=== PATIENT | male | born 1930 | race Caucasian/White ===

== ENCOUNTER 2016-07-18 11:39 | Inpatient (IN) | payer MEDICARE, OTHER ==
[2016-07-18] VITALS (9 sets, daily range): BP systolic 83–142; BP diastolic 40–81; PULSE 95–128; RESP 16–20; TEMP 97.8–99.7; O2SAT 98–100
[~2016-07-18] VITALS: Ht 170.2 cm; Wt 120.1 kg
[~2016-07-18 11:39] MED LIST: CARV3.12 PO; CETACRE3 TOPICAL; CIPR-9 PO; FURO20TA PO; LISI-360 PO; METO2.5T7 PO; OMEP20TA PO; POTA10IN2 PO; ST J81CH PO; TAMS0.4C67 PO; [UNRECOGNIZED DRUG - REMARK]; [UNRECOGNIZED DRUG - SUPPLY]
--- NOTE | 2016-07-18 12:11 | PD ---
HPI Chief Complaint: GI Complaint Time Seen by Provider: 12:11 Travel History International Travel<30 days: No Contact w/Intl Traveler<30days: No Traveled to known affect area: No History of Present Illness HPI 85-year-old male presents to the emergency department via EMS from home for evaluation for diarrhea for 4 days. Patient has a past medical history of hypertension, enlarged prostate, extremity edema, CHF, GERD. Patient states he was placed on ciprofloxacin 4 days ago for urinary tract infection. He states he soon started with diarrhea. He states the diarrhea is worse at night. He does not even know he'll be having it. Patient reports skin breakdown due to the diarrhea. He denies any fevers or chills. No chest pain or shortness of breath. Patient denies any abdominal pain. No vomiting. He denies any blood in his stool. EMS gave him 1 L normal saline IV bolus due to hypotension on scene. Patient does complain of generalized weakness. PFSH Past Medical History Hypertension: Yes Social History Alcohol Use: No (DAILY) Tobacco Use: No Substance Use: No Allergies-Medications (Allergen,Severity, Reaction): Coded Allergies: No Known Allergies (Unverified , 07/18/16) Reported Meds & Prescriptions Reported Meds & Active Scripts Active Reported Cipro (Ciprofloxacin HCl) 500 Mg Tab 500 Mg PO BID Tamsulosin (Tamsulosin HCl) 0.4 Mg Cap 0.4 Mg PO DAILY Lasix (Furosemide) 20 Mg Tab 20 Mg PO BID Lisinopril 10 Mg Tab 10 Mg PO DAILY Omeprazole 20 Mg Tab 20 Mg PO DAILY Aspirin 325 Mg Tab 325 Mg PO DAILY Review of Systems Except as stated in HPI: all other systems reviewed are Neg Physical Exam Narrative GENERAL: Well-developed well-nourished elderly male patient, afebrile. SKIN: Warm and dry. HEAD: Normocephalic. Atraumatic. EYES: No scleral icterus. No injection or drainage. NECK: Supple, trachea midline. No JVD or lymphadenopathy. CARDIOVASCULAR: Regular rate and rhythm without murmurs, gallops, or rubs. RESPIRATORY: Breath sounds equal bilaterally. No accessory muscle use. Lungs sounds are clear to auscultation. GASTROINTESTINAL: Abdomen soft, obese, non-tender, nondistended. MUSCULOSKELETAL: No cyanosis, or edema. Bilateral 2-3+ lower extremity edema noted. BACK: Nontender without obvious deformity. No CVA tenderness. RECTAL EXAM: No masses or tenderness, stool is watery, brown. Patient has skin breakdown and bleeding noted to the bilateral buttocks. Hemoccult is positive, but I'm unsure if this is due to the bleeding skin or actual blood in the stool. Data Data Last Documented VS Vital Signs Date Time Temp Pulse Resp B/P Pulse Ox O2 Delivery O2 Flow Rate FiO2 07/18/16 13:30 119 18 83/50 98 Room Air 07/18/16 11:48 97.8 Orders Complete Blood Count With Diff (07/18/16 12:09) Comprehensive Metabolic Panel (07/18/16 12:09) Urinalysis - C+S If Indicated (07/18/16 12:09) Lipase (07/18/16 12:09) Iv Access Insert/Monitor (07/18/16 12:09) Ecg Monitoring (07/18/16 12:09) Oximetry (07/18/16 12:09) Sodium Chloride 0.9% Flush (Ns Flush) (07/18/16 12:15) Blood Culture (07/18/16 12:09) C Diff Toxin Pcr (07/18/16 12:09) Enteric Path (Stool) (07/18/16 12:09) Lactic Acid Sepsis Protocol (07/18/16 12:09) Type And Screen (07/18/16 12:09) Prothrombin Time / Inr (Pt) (07/18/16 12:11) Act Partial Throm Time (Ptt) (07/18/16 12:11) Petrolat-Zinc Barrier Oint (Sensi-Care P (07/18/16 12:30) Urinary Catheter Management MARVIN.Q8H (07/18/16 12:21) Metronidazole 500 Mg Inj (Flagyl 500 Mg (07/18/16 12:30) Urine Culture (07/18/16 12:25) Sodium Chlor 0.9% 1000 Ml Inj (Ns 1000 M (07/18/16 13:30) Ceftriaxone Inj (Rocephin Inj) (07/18/16 13:30) Ceftazidime Inj (Fortaz Inj) (07/18/16 13:30) Admit Order (Ed Use Only) (07/18/16 13:36) Labs Laboratory Tests Test 07/18/16 07/18/16 12:15 12:25 White Blood Count 7.0 TH/MM3 Red Blood Count 3.87 MIL/MM3 Hemoglobin 11.9 GM/DL Hematocrit 35.4 % Mean Corpuscular Volume 91.4 FL Mean Corpuscular Hemoglobin 30.7 PG Mean Corpuscular Hemoglobin 33.6 % Concent Red Cell Distribution Width 22.6 % Platelet Count 232 TH/MM3 Mean Platelet Volume 9.2 FL Neutrophils (%) (Auto) 82.5 % Lymphocytes (%) (Auto) 6.2 % Monocytes (%) (Auto) 10.7 % Eosinophils (%) (Auto) 0.3 % Basophils (%) (Auto) 0.3 % Neutrophils # (Auto) 5.8 TH/MM3 Lymphocytes # (Auto) 0.4 TH/MM3 Monocytes # (Auto) 0.8 TH/MM3 Eosinophils # (Auto) 0.0 TH/MM3 Basophils # (Auto) 0.0 TH/MM3 CBC Comment DIFF FINAL Differential Comment Prothrombin Time 11.8 SEC Prothromb Time International 1.1 RATIO Ratio Activated Partial 27.7 SEC Thromboplast Time Sodium Level 122 MEQ/L Potassium Level 4.5 MEQ/L Chloride Level 83 MEQ/L Carbon Dioxide Level 21.3 MEQ/L Anion Gap 18 MEQ/L Blood Urea Nitrogen 25 MG/DL Creatinine 2.74 MG/DL Estimat Glomerular Filtration 22 ML/MIN Rate Random Glucose 89 MG/DL Serum Osmolality 289 MOSM/KG Lactic Acid Level 3.3 mmol/L Calcium Level 8.8 MG/DL Total Bilirubin 0.9 MG/DL Aspartate Amino Transf 115 U/L (AST/SGOT) Alanine Aminotransferase 110 U/L (ALT/SGPT) Alkaline Phosphatase 124 U/L Total Protein 6.8 GM/DL Albumin 3.2 GM/DL Lipase 422 U/L Thyroid Stimulating Hormone 2.260 uIU/ML 3rd Gen Ethyl Alcohol Level 60 MG/DL Blood Type O POSITIVE Antibody Screen NEGATIVE Blood Bank Comment Urine Color YELLOW Urine Turbidity HAZY Urine pH 5.0 Urine Specific [place] 1.012 Urine Protein 30 mg/dL Urine Glucose (UA) TRACE mg/dL Urine Ketones 10 mg/dL Urine Occult Blood TRACE Urine Nitrite NEG Urine Bilirubin NEG Urine Urobilinogen LESS THAN 2.0 MG/DL Urine Leukocyte Esterase LARGE Urine RBC 1 /hpf Urine WBC 23 /hpf Urine WBC Clumps RARE Urine Squamous Epithelial <1 /hpf Cells Urine Bacteria OCC /hpf Urine Hyaline Casts 5 /lpf Urine Mucus FEW /lpf Microscopic Urinalysis Comment CULTURE INDICATED MDM Medical Decision Making Medical Screen Exam Complete: Yes Emergency Medical Condition: Yes Medical Record Reviewed: Yes Differential Diagnosis C. difficile diarrhea versus dehydration versus sepsis versus electrolyte abnormality versus acute kidney injury Narrative Course 85-year-old elderly male presents to the emergency department for 4 days worth of diarrhea. Patient of skin breakdown to bilateral buttocks due to sitting and diarrhea. Hemoccult is positive, but I am unsure if this is due to the skin bleeding. Patient was hypotensive on scene and received 1 L normal saline IV bolus by paramedics. CBC, CMP, lipase, UA, PTT, PT/INR, C. difficile toxin, enteric pathogen in the stool, lactic acid, type and screen, blood cultures 2 are ordered and pending. EKG shows atrial fibrillation, heart rate 114. CBC shows normal WBC of 7.0, hemoglobin 11.9, hematocrit 35.4, neutrophilia 82.5 %. CMP shows hyponatremia 122, anion gap of 18, the UA 25/72.74. Liver enzymes are elevated with AST 1:15, LD 110, alkaline phosphatase 124. Lipase is 422. UA shows trace blood, large leukocyte esterase, 23 WBC, rare RBC cause , occasional bacteria. Coags show PT 11.8, INR 1.1, PTT 27.7. Lactic acid is elevated at 3.3. Intensivists are paged for admission. Sepsis Criteria SIRS Criteria (2 or more): Heart rate over 90 Severe Sepsis (+one): Lactate >2 Diagnosis Primary Impression: Hyponatremia Additional Impressions: Atrial fibrillation, new onset Urinary tract infection Qualified Code: N30.01 - Acute cystitis with hematuria Diarrhea Qualified Code: A09 - Diarrhea of presumed infectious origin Admitting Information Admitting Physician Requests: Admit Mellisa Rodriguez Jul 18, 2016 12:11
[2016-07-18] MEDS ORDERED: SODIUM CHLORIDE 0.9% FLUSH 5 ML FLUSH IVF PRN (12:15)
[2016-07-18] MEDS ORDERED: PETROLATUM 49%/ZINC OXIDE 15% 4 OUNCE TUBE TOPICAL ONE (12:30)
[2016-07-18] MEDS ORDERED: metroNIDAZOLE 500 MG INJ 100 ML IV ONE (12:30)
[2016-07-18 12:35] LABS: AUTOMATED NEUTROPHIL # 5.8 TH/MM3 (1.8-7.7); BASOPHIL % 0.3 % (0.0-2.0); EOSINOPHIL % 0.3 % (0.0-4.0); HEMATOCRIT 35.4 % (39.0-51.0); HEMO FLAGS DIFF FINAL; LYMPH % 6.2 % (9.0-44.0); LYMPHOCYTE # 0.4 TH/MM3 (1.0-4.8); MEAN CELL VOLUME 91.4 FL (80.0-100.0); MEAN CORPUSCULAR HEMOGLOBIN 30.7 PG (27.0-34.0); MEAN CORPUSCULAR HGB CONC 33.6 % (32.0-36.0); MONO % 10.7 % (0.0-8.0); NEUT % 82.5 % (16.0-70.0); PLATELET COUNT 232 TH/MM3 (150-450); RED BLOOD COUNT 3.87 MIL/MM3 (4.50-5.90); RED CELL DISTRIBUTION WIDTH 22.6 % (11.6-17.2)
[2016-07-18 12:48] LABS: APTT (PATIENT) 27.7 SEC (24.3-30.1); INTERNATIONAL NORMALIZED RATIO 1.1 RATIO; PROTHROMBIN TIME - PATIENT 11.8 SEC (9.8-11.6)
[2016-07-18 13:01] LABS: ALKALINE PHOSPHATASE 124 U/L (45-117); ALT (GPT) 110 U/L (12-78); ANION GAP 18 MEQ/L (5-15); AST (GOT) 115 U/L (15-37); BICARBONATE 21.3 MEQ/L (21.0-32.0); BLOOD UREA NITROGEN 25 MG/DL (7-18); CHLORIDE 83 MEQ/L (98-107); GLOMERULAR FILTRATION RATE 22 ML/MIN (>89); POTASSIUM 4.5 MEQ/L (3.5-5.1); TOTAL BILIRUBIN ADULT 0.9 MG/DL (0.2-1.0)
[2016-07-18 13:04] LABS: SODIUM (NA) 122 MEQ/L (136-145)
[2016-07-18 13:12] LABS: BACTERIA, URINE OCC /hpf; BLOOD, URINE TRACE (NEG); GLUCOSE,URINE TRACE mg/dL (NEG); HYALINE CAST, URINE 5 /lpf (RARE); KETONE, URINE 10 mg/dL (NEG); MUCUS URINE FEW /lpf (OCC); NITRITE,URINE NEG (NEG); SQUAMOUS EPITHELIAL CELL URINE <1 /hpf (0-5); URINE COLOR YELLOW (YELLW/STRAW)
[2016-07-18 13:18] LABS: COMMENT (UR) CULTURE INDICATED; CULTURE IF INDICATED CULTURE INDICATED
[2016-07-18] MEDS ORDERED: cefTRIAXone INJ 1,000 MG in SODIUM CHLORIDE 0.9% INJ 100 ML IV ONE (13:30)
[2016-07-18] MEDS ORDERED: cefTAZidime INJ 2,000 MG in SODIUM CHLORIDE 0.9% INJ 100 ML IV ONE (13:30)
[2016-07-18] MEDS ORDERED: SODIUM CHLOR 0.9% 1000 ML INJ 1,000 ML IV ONE ×2 (13:30→22:15)
[2016-07-18] MEDS ORDERED: CHLORHEXIDINE GLUCONATE 2 % 1 PACK (2 CLOTHS) TOP PRN (14:00)
[2016-07-18] MEDS ORDERED: RESP: ALBUTEROL 2.5 MG/IPRATROPIUM 0.5 MG NEB (PRN) INH (14:00)
[2016-07-18] MEDS ORDERED: MISCELLANEOUS NURSING INFORMATION XX SCH (14:00)
[2016-07-18 14:26] LABS: LACTIC ACID GHOST NOT REPORTABLE
--- NOTE | 2016-07-18 14:48 | MH ---
cc: AGNES HARDING M.D. DATE OF ADMISSION: 07/18/2016 DATE OF : 1930 HISTORY OF PRESENT ILLNESS The patient is an 85-year-old male with a past medical history of hypertension, BPH and GERD, who presented to [facility] ED via EMS from home with a history of non-bloody diarrhea for the past 4 days. He denies any nausea, vomiting or abdominal pain. In addition, the patient denies any cough or any constitutional symptoms. On arrival to the ED he initially had a blood pressure of 142/81, however, he was tachycardic with a heart rate in the 120s, and in the ER became hypotensive with a blood pressure in the 80s. The patient received one liter of normal saline by EMS en route and is about to receive a second liter of normal saline. His laboratory data is significant for hyponatremia with a sodium level of 122, acute renal failure with a creatinine of 2.74 with potassium 4.5, and mild elevation lactic acid at 3.3. Other significant labs showed elevated LFTs with AST 115, ALT 110 and lipase of 422. His urinalysis was positive for leukocyte esterase with 23 wbc's and occasional bacteria. He reports generalized weakness. The patient was on Cipro at home for the UTI. EKG showed new-onset atrial fibrillation with a rate of 114 beats per minute. When seen in the ER the patient is on room air oxygen. He looks comfortable, however. The patient is hypotensive with a blood pressure of 93/51 and tachycardic with heart rate of 110. The patient is an active drinker where he drinks two bottles of wine a week. PAST MEDICAL HISTORY 1. Hypertension. 2. BPH. 3. GERD. 4. Questionable CHF. PAST SURGICAL HISTORY Unremarkable. ALLERGIES No known drug allergies. SOCIAL HISTORY Noncontributory. SOCIAL HISTORY Drinks two bottles of wine a week. Non-smoker. FAMILY HISTORY Noncontributory. MEDICATIONS A blood pressure pill, which he does not remember the name. REVIEW OF SYSTEMS As per HPI. The rest of the review of systems is unremarkable. PHYSICAL EXAMINATION GENERAL: An 85-year-old male, lying in bed in no acute respiratory distress. However, he is hypotensive and appears dehydrated. VITAL SIGNS: Temperature 97.8, pulse 110, blood pressure currently 93/51, saturation 93-98% on room air. HEENT: Atraumatic, normocephalic. Pupils equal, round and reactive to light and accommodation. Extraocular muscles intact. Conjunctiva pink. Non-icteric sclera. Oral mucosa within normal. Dry mucous membranes noted. NECK: Supple. No JVD, adenopathy or thyromegaly. Trachea in the midline. CARDIOVASCULAR: Tachycardic, irregular, normal S1, S2. No murmurs, rubs or gallops noted. PULMONARY: Bilateral equal entry. No crackles or wheezing. ABDOMEN: Soft, obese, nontender, no distension. Positive bowel sounds. EXTREMITIES: No cyanosis or clubbing. Trace edema. NEUROLOGIC: No focal sensory deficit. LABORATORY DATA Sodium 122, potassium 4.5, chloride 83, anion gap 18, BUN 25, creatinine 2.74, glucose 89, lactic acid 3.3, AST 115, ALT 110, alk phos 124, lipase 422. WBC 7, hemoglobin 11.9, hematocrit 35, platelet count 232. INR 1.1, PT 11.8, PTT 27.7. Urinalysis positive for leukocyte esterase, 23 wbc's, occasional bacteria. RADIOGRAPHIC STUDIES None available. IMPRESSION 1. Hypotension. 2. Diarrhea, and rule out C. difficile. 3. Urinary tract infection. 4. Dehydration. 5. Acute renal failure. 6. Hyponatremia. 7. Mild lactic acidemia. 8. Elevated liver enzymes. 9. Mild elevation in lipase. 10.ETOH abuse. 11.History of hypertension. 12.History of BPH. 13.History of GERD. PLAN/RECOMMENDATIONS 1. Monitor neuro status closely and watch for signs of DTs. 2. Will place on thiamine, multivitamins and folic acid and will check an alcohol level. 3. Oxygen p.r.n. to maintain sats above 92%. 4. Bronchodilators on a p.r.n. basis. 5. Continue with fluid resuscitation and monitor heart rate and blood pressure closely. Maintain MAP greater than 65 mmHg. 6. The patient received one liter of normal saline by EMS and is about to receive a second liter of normal saline. Will place on maintenance fluids D5 NS at 100 mL an hour. 7. Hold antihypertensive meds and serial lactic acid monitoring. 8. Monitor renal function, I's and O's and avoid nephrotoxins. 9. I will obtain serum and urine osmolality and will check a baseline TSH level. 10.Will consult the nephrology service and continue with IV hydration as stated above. 11.Place on Protonix 40 mg IV daily for GI prophylaxis and keep n.p.o. for now. 12.Will obtain a CT scan of the abdomen and pelvis without contrast to rule out acute abdominal process. 13.Continue with empiric antibiotics in the form of Flagyl 500 mg IV q.8h. In addition, will place on Rocephin one gram IV daily for UTI. Follow-up on blood and urine cultures which were performed in the ED. 14.Will send stool studies and will check C. difficile toxin PCR to rule out C. difficile colitis as the patient was on Cipro at home for an UTI. 15.Monitor lipase level and LFTs. Check a hepatitis profile. 16.Sliding scale insulin if needed for glycemic control. 17.GI prophylaxis with Protonix 40 mg daily and DVT prophylaxis with SCDs and heparin subcu. 18.Further recommendations will be based on hospital course. Critical care time 60 minutes excluding procedures. MD GUILLAUME Wilson/HAMMAD /1:59 PM /2:19 PM
[2016-07-18] MEDS ORDERED: TAMS0.4C4 PO (15:17)
[2016-07-18] MEDS ORDERED: FURO1TAB62 PO (15:17)
[2016-07-18] MEDS ORDERED: POTA-163 PO (15:17)
[2016-07-18] MEDS ORDERED: METO2.5T PO (15:17)
[2016-07-18] MEDS ORDERED: AMLO5TAB2 PO (15:17)
[2016-07-18] MEDS ORDERED: MULT-135 PO (15:17)
[2016-07-18] MEDS ORDERED: CARV3.125 PO (15:17)
[2016-07-18] MEDS ORDERED: LISI10TA3 PO (15:17)
[2016-07-18] MEDS ORDERED: OMEP20TA PO (15:17)
[2016-07-18] MEDS ORDERED: CIPR-9 PO (15:17)
[2016-07-18] MEDS ORDERED: ASPI325T PO (15:17)
--- NOTE | 2016-07-18 15:41 | RADRPT ---
EXAM DATE/TIME: 07/18/2016 14:48 [facility] COMPARISON: No previous studies available for comparison. INDICATIONS : Elevated lipase and diarrhea. ORAL CONTRAST: No oral contrast ingested. RADIATION DOSE: 23.82 CTDIvol (mGy) MEDICAL HISTORY : Hypertension. SURGICAL HISTORY : None. ENCOUNTER: Initial ACUITY: 1 day PAIN SCALE: 5/10 LOCATION: Bilateral lower quadrant TECHNIQUE: Volumetric scanning of the abdomen and pelvis was performed. Using automated exposure control and ad justment of the mA and/or kV according to patient size, radiation dose was kept as low as reasonably achievable to obtain optimal diagnostic quality images. FINDINGS: There is a 12 mm x 8 mm nodule in the right middle lobe seen on the initial image. Further evaluation with chest CT recommended. There is diffuse fatty infiltration of the liver. Multiple gallstones are present in the gallbladder neck. The small hiatal hernia. No spleen and pancreas unremarkable. The right kidney unremarkable. Ex ophytic 5.3 cm left renal cyst and hyperdense 1.6 cm lesion superior pole, probably hemorrhagic or pr oteinaceous cyst. There is colonic diverticulosis without diverticulitis. No free fluid or free air. Moy catheter pre sent in the bladder. Degenerative change in the spine. CONCLUSION: 1. 12 mm x 8 mm nodule right middle lobe. Further evaluation with chest CT recommended. 2. Diffuse fatty liver. 3. Numerous gallstones lodged in gallbladder neck. Gallbladder not significantly distended. Probable gallbladder sludge present. 4. Multiple left renal cysts. Juan Carlos Ivan MD on July 18, 2016 at 15:32 Board Certified Radiologist. This report was verified electronically.
[2016-07-18] MEDS: MULTIVITAMIN TAB PO SCH (15:46)
[2016-07-18] MEDS: PANTOPRAZOLE SODIUM 40 MG VIAL IV SCH (15:46)
[2016-07-18] MEDS: DEXT 5%-NACL 0.9% 1000 ML INJ 1,000 ML IV SCH (15:46)
[2016-07-18] MEDS: cefTRIAXone INJ 1,000 MG in SODIUM CHLORIDE 0.9% INJ 100 ML IV SCH (15:46)
[2016-07-18] MEDS: THIAMINE HCL 100 MG TAB PO SCH (15:47)
[2016-07-18] MEDS: FOLIC ACID 1 MG TAB PO SCH (15:47)
[2016-07-18] MEDS: HEPARIN SODIUM - SQ 10,000 UNITS/ML VIAL SQ SCH (15:47)
[2016-07-18 18:50] LABS: POTASSIUM 5.6 MEQ/L (3.5-5.1)
[2016-07-18] MEDS ORDERED: LACTATED RINGER'S 1000 ML INJ 1,000 ML IV ONE (21:45)
--- NOTE | 2016-07-18 21:45 | HHI.CCPN ---
Subjective Remarks/Hospital Course Followed up patient's labs. Lactic acid 6.7. Went to bedside to evaluate him. UOP was 750 since admission about 8 hours ago (83 ml/hr). SBP is 85/40 with heart rate 90-120s, A fib. Ordered 1 L LR bolus and about 1/4 is in so far. He is alert and denies abdominal pain. Abdomen is nontender to palpation. Denies nausea or other complaint. Peripherally warm with good cap refill and BP now 94/ 50 with MAP 67. Lungs are clear without crackles. On 2 L NC. Moy with urometer , will monitor hourly urine output. Increase MIVF to 150/hr. Active drinker and family very concerned with possibility of EtOH withdrawal (family states bottle of wine a day). Will initiate valium 2 mg po q8 hours with hold orders for sedation. Followed up in 1 hour. When bolus stops, SBP in 70s. Placed CVL and started levophed. Followed up and lactic acid is normal. Discussed with RN and UOP 75 mL /hr. Objective Vital Signs Date Time Temp Pulse Resp B/P Pulse Ox O2 Delivery O2 Flow Rate FiO2 07/18/16 18:00 98.3 120 20 95/55 99 07/18/16 17:21 Room Air Result Diagram: 07/18/16 1215 07/18/16 1820 Shilpa Roque MD Jul 18, 2016 21:45
[2016-07-18] MEDS ORDERED: metroNIDAZOLE 500 MG INJ 100 ML IV SCH (22:00)
--- NOTE | 2016-07-18 22:52 | RADRPT ---
EXAM DATE/TIME: 07/18/2016 21:19 [facility] COMPARISON: No previous studies available for comparison. INDICATIONS : Increased BUN and creatinine. MEDICAL HISTORY : Congestive heart failure. Hypertension. Gastroesophageal reflux disease. Snoring. Heartburn. Daily al cohol use. SURGICAL HISTORY : Rotator cuff. ENCOUNTER: Initial ACUITY: 1 day PAIN SCORE: 0/10 LOCATION: Bilateral flank MEASUREMENTS: RIGHT KIDNEY: 11.9 x 6.3 x 6.5 cm LEFT KIDNEY: 11.3 x 4.4 x 4.6 cm FINDINGS: RIGHT KIDNEY: Renal cortex is normal in thickness and echotexture. No hydronephrosis, stone, or mass. LEFT KIDNEY: Renal cortex is normal in thickness and echotexture. No hydronephrosis, stone, or mass. A 6.2 cm sim ple cyst is seen exophytic from the upper pole. A 9 mm cyst is seen involving the cortex of the lower pole. BLADDER: Within normal limits given the degree of distension. A Moy balloon is present within the urinary bl adder. CONCLUSION: 1. Simple cysts in the left kidney. Otherwise, unremarkable exam. Gerson Zhang Jr., MD on July 18, 2016 at 22:48 Board Certified Radiologist. This report was verified electronically.
[2016-07-18] MEDS ORDERED: PHENYLEPHRINE 40 MG/D5W 496 ML ADMIX IV SCH ×2 (23:15)
[2016-07-18] MEDS ORDERED: TERBUTALINE INJ 1 MG/ML AMP SQ PRN ×2 (23:15→23:30)
[2016-07-18] MEDS ORDERED: PHENYLEPHRINE INJ 160 MG in DEXTROSE 5% IN WATE 500 ML INJ 484 ML IV SCH ×2 (23:30)
--- NOTE | 2016-07-18 23:43 | PD.PROCEDR ---
Procedure Note Procedure DATE: 07/18/16 CENTRAL LINE PLACEMENT: Left internal jugular vein. Ultrasound-guided INDICATION: Central venous access CONSENT Informed consent for procedure was obtained from patient after discussion of risks, benefits, alternatives. Also discussed with healthcare surrogate and signed consent is on the chart. DESCRIPTION OF THE PROCEDURE The patient was placed in supine position, Trendelenburg. The skin was cleansed with Chloraprep x3. Additional barrier precautions included large sterile drape, sterile gloves, sterile gown, face mask, and hat. 1 % lidocaine was used for local anesthesia. Under direct ultrasound guidance and on single attempt, the vein was accessed with an introducer needle. The guide wire was advanced and the tract was dilated. Using Seldinger technique a 7 Romanian 20 cm antimicrobial coated triple-lumen catheter was advanced to a depth of 18 centimeters. The guide wire was removed. All ports had good return of dark venous blood and flushed easily with saline. The central line was secured with 2.0 silk. A sterile dressing with antibiotic disc was applied. ESTIMATED BLOOD LOSS: Minimal COMPLICATIONS: No apparent complications. STAT chest x-ray demonstrated satisfactory central venous line position without apparent complication. Shilpa Roque MD Jul 18, 2016 23:43
[2016-07-19] VITALS (15 sets, daily range): BP systolic 90–115; BP diastolic 44–58; PULSE 78–112; RESP 16–20; TEMP 96–99.7; O2SAT 92–98
--- NOTE | 2016-07-19 | RADRPT ---
EXAM DATE/TIME: 07/18/2016 23:24 [facility] COMPARISON: No previous studies available for comparison. INDICATIONS : Post central line placement. MEDICAL HISTORY : Hypertension. Congestive heart failure. Gastroesophageal reflux disease. SURGICAL HISTORY : Rotator cuff repair ENCOUNTER: Initial ACUITY: 1 day PAIN SCORE: 5/10 LOCATION: Left chest FINDINGS: A single view of the chest demonstrates the lungs to be symmetrically aerated without evidence of mas s, infiltrate or effusion. The cardiomediastinal contours are unremarkable. Osseous structures are intact. Left internal jugular vein central venous line with tip at the SVC level. No pneumothorax. CONCLUSION: 1. Left-sided central line without pneumothorax. Gerson Zhang Jr., MD on July 18, 2016 at 23:57 Board Certified Radiologist. This report was verified electronically.
[2016-07-19 00:26] LABS: AUTOMATED NEUTROPHIL # 4.5 TH/MM3 (1.8-7.7); BASOPHIL % 0.7 % (0.0-2.0); EOSINOPHIL # 0.1 TH/MM3 (0-0.4); EOSINOPHIL % 1.2 % (0.0-4.0); HEMATOCRIT 29.7 % (39.0-51.0); HEMO FLAGS DIFF FINAL; LYMPH % 8.2 % (9.0-44.0); LYMPHOCYTE # 0.5 TH/MM3 (1.0-4.8); MEAN CELL VOLUME 90.8 FL (80.0-100.0); MEAN CORPUSCULAR HEMOGLOBIN 30.1 PG (27.0-34.0); MEAN CORPUSCULAR HGB CONC 33.2 % (32.0-36.0); MONO % 13.6 % (0.0-8.0); NEUT % 76.3 % (16.0-70.0); PLATELET COUNT 163 TH/MM3 (150-450); RED BLOOD COUNT 3.28 MIL/MM3 (4.50-5.90); RED CELL DISTRIBUTION WIDTH 22.8 % (11.6-17.2); WHITE BLOOD COUNT 5.9 TH/MM3 (4.0-11.0)
[2016-07-19 00:45] LABS: BICARBONATE 24.3 MEQ/L (21.0-32.0); POTASSIUM 3.9 MEQ/L (3.5-5.1)
[2016-07-19] MEDS: DEXT 5%-NACL 0.9% 1000 ML INJ 1,000 ML IV SCH ×3 (01:00→19:06)
[2016-07-19 01:03] LABS: KAPPA LAMBDA RATIO 1.89 (1.57-3.93)
[2016-07-19 01:13] LABS: TOTAL PROTEIN SPE 5.3 GM/DL (6.0-7.6)
[2016-07-19] MEDS: CHLORHEXIDINE GLUCONATE 2 % 1 PACK (2 CLOTHS) TOP SCH (04:00)
[2016-07-19 04:42] LABS: AUTOMATED NEUTROPHIL # 5.4 TH/MM3 (1.8-7.7); BASOPHIL # 0.1 TH/MM3 (0-0.2); BASOPHIL % 0.9 % (0.0-2.0); EOSINOPHIL # 0.1 TH/MM3 (0-0.4); EOSINOPHIL % 1.1 % (0.0-4.0); HEMATOCRIT 31.1 % (39.0-51.0); HEMO FLAGS DIFF FINAL; LYMPH % 7.8 % (9.0-44.0); LYMPHOCYTE # 0.6 TH/MM3 (1.0-4.8); MEAN CELL VOLUME 91.8 FL (80.0-100.0); MEAN CORPUSCULAR HEMOGLOBIN 30.2 PG (27.0-34.0); MEAN CORPUSCULAR HGB CONC 32.9 % (32.0-36.0); MONO % 13.3 % (0.0-8.0); NEUT % 76.9 % (16.0-70.0); PLATELET COUNT 180 TH/MM3 (150-450); RED BLOOD COUNT 3.39 MIL/MM3 (4.50-5.90); RED CELL DISTRIBUTION WIDTH 22.6 % (11.6-17.2); WHITE BLOOD COUNT 7.1 TH/MM3 (4.0-11.0)
[2016-07-19 05:11] LABS: BICARBONATE 22.5 MEQ/L (21.0-32.0); POTASSIUM 3.8 MEQ/L (3.5-5.1)
[2016-07-19 05:15] LABS: ALKALINE PHOSPHATASE 97 U/L (45-117); ALT (GPT) 80 U/L (12-78); ANION GAP 12 MEQ/L (5-15); AST (GOT) 76 U/L (15-37); BICARBONATE 22.8 MEQ/L (21.0-32.0); BLOOD UREA NITROGEN 23 MG/DL (7-18); CHLORIDE 94 MEQ/L (98-107); GLOMERULAR FILTRATION RATE 28 ML/MIN (>89); POTASSIUM 3.7 MEQ/L (3.5-5.1); SODIUM (NA) 129 MEQ/L (136-145); TOTAL BILIRUBIN ADULT 0.9 MG/DL (0.2-1.0)
[2016-07-19] MEDS: DIAZEPAM 2 MG TAB PO SCH ×3 (06:39→23:15)
[2016-07-19] MEDS: NYSTATIN 100,000 U/GM PWD 15 GM BTL TOPICAL SCH ×3 (06:39→21:00)
--- NOTE | 2016-07-19 09:07 | HHI.CCPN ---
Subjective Remarks/Hospital Course 07/18/15: 85 year-old male with a past medical history of HTN, BPH, GERD, alcoholism, history of multiple falls, and outpatient treatment of UTI with Cipro, presented from home via EMS for treatment non-bloody diarrhea and generalized weakness x4 days. Denies n/v, abd pain, cough, or constitutional symptoms. On arrival, blood pressure of 142/81 and tachycardic to 120s, found to be in new-onset afib. Received 2L normal saline. Labs significant for hyponatremia (122), ARF (Cr 2.74) with K 4.5, and mild LA elevation to 3.3. Elevated LFTs: AST 115 ALT 110, Lipase 422. U/A +LE w 23 WBC and occasional bacterial. Pt drinks 2 bottles wine/week. EtOH elevated to 60 on admission. 07/18/15 PM: F/U labs: LA 6.7. UOP 750 mL over 8 hr (83 ml/hr). Ordered 1 L LR bolus and about 1/4 is in so far. Alert, denies n/v/abd pain. Abdomen NTTP.Peripherally warm with good cap refill. BP now 94/50 with MAP 67. Lungs clear. 2L NC. Moy with urometer, monitor hourly UOP. Increase MIVF to 150/hr. Active drinker and family very concerned with possibility of EtOH withdrawal ( family states bottle of wine a day). Will initiate valium 2 mg po q8 hours with hold orders for sedation. -> Followed up in 1 hour. When bolus stopped, SBP in 70s. Placed CVL and started levophed. Followed up and lactic acid is normal. Discussed with RN and UOP 75 mL/hr. 07/19/15: No acute events overnight. Pt reports feeling uncomfortable while in bed and repeatedly requests to sit up, though he is already almost vertical in bed. Denies bowel movement since in hospital. Has Moy catheter in place draining pink-tinged urine. 24hr UOP 1.2L. Tachycardia improved, pulse currently at 90. Remains hypotensive to 90/50, on Jef-Synephrine. Will wean pressors today as tolerated. Satting 98% on 2L NC. We'll also wean today as tolerated. Lactic acid wnl. Elevated AST/ALT improving. Lipase increased slightly, 400 to 510. On ceftriaxone, Flagyl for UTI. UCx pending. Objective Vital Signs Date Time Temp Pulse Resp B/P Pulse Ox O2 Delivery O2 Flow Rate FiO2 07/19/16 08:39 98 Nasal Cannula 2.00 07/19/16 06:00 89 07/19/16 04:00 99.0 20 90/53 Intake and Output 07/18/16 07/18/16 07/19/16 08:00 16:00 00:00 Output Total 530 ml Balance -530 ml Result Diagram: 07/19/16 0346 07/19/16 0346 Other Results CONSTITUTIONAL: Adult male in moderate positional distress, shifting in bed DERM: Warm and dry HEENT: EOMI. PERRL. No scleral icterus. MMM.. NECK: No LAD CV: Tachycardic. Hypotensive. Regular rhythm. No murmurs. 2+ peripheral edema in LE to knee. RESP: LCTAB. No wheezes or rales. Good air movement. Non-labored breathing on room air. GI: Abdomen obese, NTND. +BS. MSK: Symmetrical muscle tone NEURO: Awake and alert. Oriented to person, year/month, state/city, reason why in hospital. Not oriented to date. No facial droop. Severe resting tremor of UE bilaterally. Unchanged with intentional movement. Unable to lift lower extremities against gravity. Unable to AB duct right shoulder more than 50. SILT x4 extremities. PSYCH: Somewhat flattened affect. Appropriate tone, responses. Imaging Last Impressions Renal Ultrasound 07/18/16 Signed Impressions: Service Date/Time: Monday, July 18, 2016 21:19 - CONCLUSION: 1. Simple cysts in the left kidney. Otherwise, unremarkable exam. Gerson Zhang Jr., MD Chest X-Ray 07/18/16 0000 Signed Impressions: Service Date/Time: Monday, July 18, 2016 23:24 - CONCLUSION: 1. Left- sided central line without pneumothorax. Gerson Zhang Jr., MD Abdomen/Pelvis CT 07/18/16 0000 Signed Impressions: Service Date/Time: Monday, July 18, 2016 14:48 - CONCLUSION: 1. 12 mm x 8 mm nodule right middle lobe. Further evaluation with chest CT recommended. 2. Diffuse fatty liver. 3. Numerous gallstones lodged in gallbladder neck. Gallbladder not significantly distended. Probable gallbladder sludge present. 4. Multiple left renal cysts. Juan Carlos Ivan MD Procedures 07/18/15: IJ CVL insertion Urinary Catheter: Yes Assessment to: Continue Moy insert reason: Measure Accurate Output Date of Insertion: Jul 18, 2016 Vascular Central Line Catheter: Yes Assessment to: Continue Date of Insertion: Jul 18, 2016 Line: Central Venous Catheter Side: Left Location: Jugular A/P Assessment and Plan ASSESSMENT Resting tremor, suspected Parkinson's disease Ataxic gait with history of multiple falls Hypotension, with history of chronic hypertension New-onset afiB with RVR Diarrhea, likely secondary to antibiotics, rule out C. difficile (?) GERD Cholelithiasis Dehydration Acute renal failure UTI, failed outpatient treatment with Cipro, urine culture pending Hyponatremia Mild lactic acidemia, resolved Elevated liver enzymes, resolving Alcohol abuse, one bottle of wine daily per family, history of shaking/ withdrawal BPH Right rotator cuff pathology PLAN: Neuro: Monitor status, watch for signs of DT. Ativan PRN seizures + CIWA protocol. Continue thiamine, folic acid, multivitamin. Sinemet 10/100 tid to see if parkinsonian tremor improves. Neuro consult for suspected parkinson's disease. Resp: Continue oximetry and O2 mentation to maintain sats 90%+. DuoNeb PRN. Saturating well on 2L NC. Wean to room air today, as tolerated. CV: New-onset A. fib on arrival, likely precipitated by dehydration. TSH within normal limits. Currently tachycardic, with regular rhythm, no murmurs. Remains hypotensive, requiring low-dose Jef-Synephrine. Wean pressors today, as tolerated. MIVF at 100cc/hr GI/Liver: Diarrhea appears resolved since admission. Likely secondary to recent outpatient Cipro use for UTI Continue fluid rehydration. Check C diff PCR. Advance diet from clears, as recommended after swallow eval. Cholelithiasis found on CT a/p appears asymptomatic incidental finding, though lipase is elevated to 500. Continue to trend lipase. Lactic acid, peaked at 6.7, now returned to wnl. Hepatitis panel pending. Renal/FEN: Moy catheter in place. Monitor I's and O's. Acute renal failure, Cr 2.8 on admission downtrending. Monitor with daily BMPs. Avoid nephrotoxic agents. Fluid rehydration. Monitor and replete electrolytes as necessary. Nutrition per ST eval results. Currently on clears, advance diet as tolerated. Endo: SSI PRN glucose control. Heme: Normocytic anemia. Monitor with daily CBCs. ID: UTI per UA, refractory to outpatient treatment with Cipro. Urine culture pending. Blood cultures pending. Continue ceftriaxone IV. Switch Flagyl to PO . Chest x-ray 07/18/15 did not show infiltrate. Prophylaxis: SCDs, prophylactic heparin, continue home PPI SDW: Dr. Weiss Addendum: Patient seen and examined earlier. Discussed findings, assessment and plan with Dr. Bernstein as outlined above. Agree with above note. Patient remains hypotensive requiring Jef-Synephrine for pressor support. Time spent on critical care excluding procedures 30 minutes Yaima Guo MD R1 Jul 19, 2016 09:07 García Weiss MD Jul 19, 2016 10:39
[2016-07-19] MEDS: MULTIVITAMIN TAB PO SCH (09:14)
[2016-07-19] MEDS: PANTOPRAZOLE SODIUM 40 MG VIAL IV SCH (09:14)
[2016-07-19] MEDS: THIAMINE HCL 100 MG TAB PO SCH (09:14)
[2016-07-19] MEDS: FOLIC ACID 1 MG TAB PO SCH (09:14)
--- NOTE | 2016-07-19 12:02 | EKG ---
Date Performed: 07/18/2016 Time Performed: 12:02:42 PTAGE: 85 years EKG: ATRIAL FIBRILLATION WITH RAPID VENTRICULAR RESPONSE INTRAVENTRICULAR CONDUCTION DELAY ABNOR MAL ECG NO PREVIOUS TRACING DOCTOR: Zain Medrano Interpretating Date/Time 07/19/2016 12:01:41
[2016-07-19] MEDS: CARBIDOPA/LEVODOPA 10 MG/100 MG TAB PO SCH ×3 (12:14→23:15)
[2016-07-19] MEDS: metroNIDAZOLE 500 MG TAB PO SCH ×2 (13:14→23:16)
[2016-07-19] MEDS: cefTRIAXone INJ 1,000 MG in SODIUM CHLORIDE 0.9% INJ 100 ML IV SCH (13:15)
[2016-07-19] MEDS: HEPARIN SODIUM - SQ 10,000 UNITS/ML VIAL SQ SCH (13:15)
--- NOTE | 2016-07-19 16:19 | EC ---
Study Study Date:07/19/2016 STUDY CONCLUSIONS SUMMARY - Procedure narrative: Transthoracic echocardiography. Image quality was poor. Scanning was performed from the parasternal, apical, and subcostal acoustic windows. - Left ventricle: The cavity size was normal. Wall thickness was normal. Systolic function was normal. The estimated ejection fraction was in the range of 55% to 60%. Wall motion was normal; there were no regional wall motion abnormalities. - Aortic valve: Valve area: 2.62cm^2 (Vmax). If LV function is below 40, please consider prescribing an ACEI or ARB or document rationale for non-use. PROCEDURE DATA STUDY STATUS: Elective. Procedure: Transthoracic echocardiography. Image quality was poor. Scanning was performed from the parasternal, apical, and subcostal acoustic windows. Study completion: The patient tolerated the procedure well. Transthoracic echocardiography. M-mode, complete 2D, complete spectral Doppler, and color Doppler. Height: Height: 67in. Weight: Weight: 230.5lb. Body mass index: BMI: 36.2kg/m^2. Body surface area: BSA: 2.15m^2. Patient status: Inpatient. CARDIAC ANATOMY LEFT VENTRICLE: The cavity size was normal. Wall thickness was normal. Systolic function was normal. The estimated ejection fraction was in the range of 55% to 60%. Wall motion was normal; there were no regional wall motion abnormalities. AORTIC VALVE: Trileaflet; normal thickness leaflets. Doppler: Transvalvular velocity was within the normal range. There was no stenosis. No regurgitation. Valve area: 2.62cm^2 (Vmax). Indexed valve area: 1.22cm^2/m^2 (Vmax). AORTA: Aortic root: The aortic root was normal in size. MITRAL VALVE: Structurally normal valve. Doppler: Transvalvular velocity was within the normal range. There was no evidence for stenosis. No regurgitation. LEFT ATRIUM: The atrium was normal in size. RIGHT VENTRICLE: The cavity size was normal. Wall thickness was normal. PULMONIC VALVE: Doppler: Transvalvular velocity was within the normal range. There was no evidence for stenosis. No regurgitation. TRICUSPID VALVE: Structurally normal valve. Doppler: Transvalvular velocity was within the normal range. No regurgitation. PULMONARY ARTERY: The main pulmonary artery was normal-sized. Systolic pressure was within the normal range. RIGHT ATRIUM: The atrium was normal in size. PERICARDIUM: There was no pericardial effusion. SYSTEMIC VEINS: Inferior vena cava: The vessel was normal in size. Patient weight: 230.5lb _Ejection fraction:_ 65-75% _Fractional shortening:_ 32% up to 5Kg 5-11.5Kg 11.6-22.9Kg 23-45Kg 45-57Kg Aortic Root 7-13 <17 13-22 17-27 17-27 LA diam 6-13 <23 24-38 33-47 37-40 RVID 10-17 7-15 7-15 7-18 8-17 LVIDd 12-22 <32 24-38 33-47 37-40 LVPW 2-4 3-6 5-7 6-8 7-8 IVS 2-4 3-6 5-7 6-8 7-8 BASIC MEASUREMENTS ADULT NORMAL Left ventricle LV internal dimension, ED, chordal *39.5 mm 43-52 level, PLAX LV internal dimension, ES, chordal 31.3 mm 23-38 level, PLAX Fractional shortening, chordal level, *21 % >29 PLAX LV posterior wall thickness, ED 9.35 mm IVS/LVPW ratio, ED 0.88 <1.3 Ventricular septum Septal thickness, ED 8.27 mm Aortic valve Leaflet separation *13 mm 15-26 Right ventricle RV internal dimension, ED, PLAX 38 mm 19-38 BASIC MEASUREMENTS ADULT NORMAL Aortic valve Leaflet separation *13 mm 15-26 Aorta Root diameter, ED 35 mm 20-37 Left atrium Anterior-posterior dimension, ES 37 mm 19-40 Anterior-posterior dimension index, ES 1.72 cm/m^2 <2.2 LA/aortic root ratio 1.06 DOPPLER MEASUREMENTS ADULT NORMAL Main pulmonary artery Pressure, S 26 mm Hg =30 Aortic valve Peak velocity, S 95.7 cm/s Valve area, Vmax 2.62 cm^2 Valve area index, Vmax 1.22 cm^2/m^2 Regurgitant velocity, ED 130 cm/s Regurgitant deceleration 2230 cm/s^2 Regurgitant pressure half-time 429 ms Regurgitant gradient, ED 7 mm Hg Tricuspid valve Regurgitant peak velocity 182 cm/s Peak RV-RA gradient, S 13 mm Hg Maximal regurgitant velocity 182 cm/s Systemic veins Estimated CVP 10 mm Hg Right ventricle RV pressure, S *32 mm Hg <30 Pulmonic valve Peak velocity, S 121 cm/s LEGEND: Mean values are shown as u=mean value. Asterisk (*) cantu values outside specified normal range. Amended Palomo Montelongo [id number]
--- NOTE | 2016-07-19 17:22 | PD.CONS ---
[facility] Service Nephrology Consult Requested By Dr. Quick Reason for Consult Renal insufficiency, hyponatremia Primary Care Physician Unknown History of Present Illness The patient is an 85 yo male who presented to this facility on 07/18/16 with complaints of 4 days worth of diarrhea. He does not appear to be a very reliable historian, but denies any other symptoms accompanying his diarrhea. Diarrhea started when he was given Cipro for a UTI by his PCP. BP on arrival was normal, but he shortly became hypotensive and tachycardiac and was given IVF resuscitation. He is now in the ICU on Levophed for BP for hypotension. He does not have any other admissions to compare, but on arrival his SCr was 2.74 labs improved to 2.29 at time of consult. His Na on admission was also low at 122 that has improved to 130 today. He states he drinks 2 bottles of wine per week, but according to his family (not present but relayed to the RN) he drinks about 2 bottles of wine per day. His PMHx was obtained thru other records as he claims he has no medical history besides hypertension. Home medications include Lasix 20mg BID, but he states he has no cardiac history. ( Lena Grijalva) Review of Systems Gastrointestinal: COMPLAINS OF: Diarrhea (Lena Grijalva) Past Family Social History Allergies: Coded Allergies: No Known Allergies (Unverified , 07/18/16) Past Medical History Medical history obtained thru previous records: HTN BPH GERD ? CHF Alcohol abuse Past Surgical History Denies Reported Medications Reported Meds & Active Scripts Active Reported Cipro (Ciprofloxacin HCl) 500 Mg Tab 500 Mg PO BID Tamsulosin (Tamsulosin HCl) 0.4 Mg Cap 0.4 Mg PO DAILY Lasix (Furosemide) 20 Mg Tab 20 Mg PO BID Lisinopril 10 Mg Tab 10 Mg PO DAILY Omeprazole 20 Mg Tab 20 Mg PO DAILY Aspirin 325 Mg Tab 325 Mg PO DAILY Active Ordered Medications Current Medications Medications (Trade) Dose Ordered Sig/Donny Route Start Time Stop Time Status Last Admin (NS Flush) 2 ml UNSCH PRN IVF 07/18/16 12:15 (Protonix Inj) 40 mg DAILY IV 07/18/16 15:00 07/19/16 09:14 (Heparin Inj) 5,000 units Q12H SQ 07/18/16 15:00 07/19/16 13:15 Miscellaneous Information 1 Q361D XX 07/18/16 14:00 (Chlorhexidine 2% Cloth) 3 pack Taper DAILY@04 TOP 07/19/16 04:00 07/15/17 03:59 07/19/16 04:00 (Chlorhexidine 2% Cloth) 3 pack UNSCH PRN TOP 07/18/16 14:00 (Vitamin B1) 100 mg DAILY PO 07/18/16 15:00 07/19/16 09:14 (Folate) 1 mg DAILY PO 07/18/16 15:00 07/19/16 09:14 Multivitamins 1 tab 1 tab DAILY PO 07/18/16 15:00 07/19/16 09:14 Ceftriaxone Sodium 1000 mg/ Sodium Chloride 100 ml @ 200 mls/hr Q24H IV 07/18/16 15:00 07/19/16 13:15 (D5W-NS 1000 ml Inj) 1,000 ml @ 100 mls/hr Q10H IV 07/18/16 15:00 07/19/16 08:46 (Mycostatin Powder) 1 applic Q12HR TOPICAL 07/18/16 21:00 07/19/16 08:46 (Valium) 2 mg Q8H PO 07/18/16 22:00 07/19/16 13:14 Terbutaline Sulfate 1 mg 1 mg UNSCH PRN SQ 07/18/16 23:30 (Neosynephrine Inj/D5W 500 ml Inj) 500 ml @ 0 mls/hr TITRATE IV 07/18/16 23:30 (Flagyl) 500 mg Q8HR PO 07/19/16 14:00 07/19/16 13:14 (Sinemet 10-100 Mg) 1 tab Q8HR PO 07/19/16 10:45 07/19/16 14:36 Family History Noncontributory Social History Drinks 2 bottles of wine per week (family states he drinks 2 bottles everyday) Non-smoker Lives alone. (Lena Grijalva) Physical Exam Vital Signs Vital Signs Date Time Temp Pulse Resp B/P Pulse Ox O2 Delivery O2 Flow Rate FiO2 07/19/16 16:00 103 07/19/16 16:00 98.2 103 16 112/56 92 07/19/16 14:00 95 07/19/16 12:00 109 07/19/16 12:00 98.2 109 18 95/55 95 07/19/16 10:00 102 07/19/16 08:39 98 Nasal Cannula 2.00 07/19/16 08:00 98.3 88 20 115/58 94 07/19/16 08:00 88 07/19/16 07:25 98 Nasal Cannula 2.00 07/19/16 06:00 89 07/19/16 04:00 89 07/19/16 04:00 99.0 89 20 90/53 96 07/19/16 02:00 88 07/19/16 00:00 88 07/19/16 00:00 96.0 78 20 92/44 94 07/18/16 22:00 98 07/18/16 20:00 98 07/18/16 20:00 99.7 95 20 85/40 98 07/18/16 18:00 98.3 120 20 95/55 99 07/18/16 17:21 128 18 119/67 98 Room Air Physical Exam GENERAL: Laying in bed eating SKIN: Warm and dry. HEAD: Atraumatic. Normocephalic. EYES: Pupils equal and round. No scleral icterus. No injection or drainage. ENT: No nasal bleeding or discharge. Mucous membranes pink and moist. NECK: Trachea midline. No JVD. CARDIOVASCULAR: Regular rate and rhythm. RESPIRATORY: No accessory muscle use. Clear to auscultation. Breath sounds equal bilaterally. GASTROINTESTINAL: Abdomen soft, non-tender, nondistended. MUSCULOSKELETAL: Extremities without clubbing, cyanosis. No obvious deformities. Edema BLE L>R. 1+ Pitting NEUROLOGICAL: Awake and alert. Normal speech. Notable tremor in L arm. The patient states this has been present since a fall on his shoulder PSYCHIATRIC: Appropriate mood and affect; insight and judgment normal. Laboratory Laboratory Tests Test 07/18/16 07/18/16 07/19/16 07/19/16 17:50 18:20 00:10 03:46 Nasal Screen MRSA (PCR) NEGATIVE Sodium Level 127 129 130 Potassium Level 5.6 3.9 3.8 Chloride Level 88 93 94 Carbon Dioxide Level 22.0 24.3 22.5 Anion Gap 17 12 14 Blood Urea Nitrogen 25 24 23 Creatinine 2.81 2.34 2.29 Estimat Glomerular Filtration 22 27 27 Rate Random Glucose 85 113 137 Lactic Acid Level 6.7 1.1 Calcium Level 8.3 7.7 8.0 Hepatitis A IgM Antibody NEGATIVE Hepatitis B Surface Antigen NEGATIVE Hepatitis B Core IgM Antibody NEGATIVE Hepatitis C Antibody NEGATIVE White Blood Count 5.9 7.1 Red Blood Count 3.28 3.39 Hemoglobin 9.9 10.3 Hematocrit 29.7 31.1 Mean Corpuscular Volume 90.8 91.8 Mean Corpuscular Hemoglobin 30.1 30.2 Mean Corpuscular Hemoglobin 33.2 32.9 Concent Red Cell Distribution Width 22.8 22.6 Platelet Count 163 180 Mean Platelet Volume 8.8 9.3 Neutrophils (%) (Auto) 76.3 76.9 Lymphocytes (%) (Auto) 8.2 7.8 Monocytes (%) (Auto) 13.6 13.3 Eosinophils (%) (Auto) 1.2 1.1 Basophils (%) (Auto) 0.7 0.9 Neutrophils # (Auto) 4.5 5.4 Lymphocytes # (Auto) 0.5 0.6 Monocytes # (Auto) 0.8 0.9 Eosinophils # (Auto) 0.1 0.1 Basophils # (Auto) 0.0 0.1 CBC Comment DIFF FINAL DIFF FINAL Differential Comment Serum Osmolality 282 B-Type Natriuretic Peptide 134 Total Protein 5.3 5.7 Immunoglobulin G Total 909 Immunoglobulin A 282 Immunoglobulin M 58 Immunoglobulin [place]/Lambda 1.89 Ratio [place] Light Chain Analysis 255 Lambda Light Chain Analysis 135 Total Bilirubin 0.9 Aspartate Amino Transf 76 (AST/SGOT) Alanine Aminotransferase 80 (ALT/SGPT) Alkaline Phosphatase 97 Albumin 2.5 Lipase 508 Date/Time Procedure Status Source Growth 07/18/16 12:25 Urine Culture - Preliminary Resulted Urine Random Urine NO GROWTH IN 24 HOURS. 07/18/16 12:15 Aerobic Blood Culture - Preliminary Resulted Blood Peripheral NO GROWTH IN 1 DAY 07/18/16 12:15 Anaerobic Blood Culture - Preliminary Resulted Blood Peripheral NO GROWTH IN 1 DAY (Lena Grijalva) Result Diagram: 07/19/16 0346 07/19/16 0346 Imaging Last Impressions Renal Ultrasound 07/18/16 0000 Signed Impressions: Service Date/Time: Monday, July 18, 2016 21:19 - CONCLUSION: 1. Simple cysts in the left kidney. Otherwise, unremarkable exam. Gerson Zhang Jr., MD Chest X-Ray 07/18/16 0000 Signed Impressions: Service Date/Time: Monday, July 18, 2016 23:24 - CONCLUSION: 1. Left- sided central line without pneumothorax. Gerson Zhang Jr., MD Abdomen/Pelvis CT 07/18/16 0000 Signed Impressions: Service Date/Time: Monday, July 18, 2016 14:48 - CONCLUSION: 1. 12 mm x 8 mm nodule right middle lobe. Further evaluation with chest CT recommended. 2. Diffuse fatty liver. 3. Numerous gallstones lodged in gallbladder neck. Gallbladder not significantly distended. Probable gallbladder sludge present. 4. Multiple left renal cysts. Juan Carlos Ivan MD (Lena Grijalva) Assessment and Plan Problem List: (1) Acute renal insufficiency Plan: Renal functions have improved with IV fluid suggesting acute renal decline related to volume depletion from recent diarrhea and likely EtOH abuse. He has also been hypotensive requiring pressor support so some renal decline may be related to hypoperfusion. He is not a clear historian regarding his medical conditions, but does not recall ever being told he had chronic renal disease. There are no other admission for comparison. Renal US reviewed and shows no evidence of increased echogenicity which would indicate medical renal disease. We are screening for other causes of renal disease, all of which are pending. Agree with IVF for the present. He does have some edema, but echo reviewed and showed preserved EF Some edema likely related to hypoalbuminemia. The patient likely is not eating well as an outpatient given his clinical appearance. Medications should be adjusted for the patient's renal decline. Avoid nephrotoxic agents including NSAIDs and iodinated contrast dyes. Avoid gadolinium when eGFR <30. (2) Hyponatremia Plan: Improved with IVF. Likely related to volume depletion as well as suspected malnutrition given his hypoalbuminemia. EtOH abuse can also cause hyponatremia related to paucity of osmoles required for adequate ADH secretion. (3) Atrial fibrillation, new onset Plan: Mgmt as per cardiology (4) Alcohol dependence, continuous drinking behavior Plan: Once patient more stable, discussion should be had about EtOH cessation Ab CT showed evidence of fatty liver infiltration. No cirrhosis noted. Hepatitis panel negative (5) Diarrhea Plan: w/u as per primary (6) Lung nodule Plan: Detected on CT abdomen. Will defer w/u to primary. (Lena Grijalva) Assessment and Plan Physical examination, evaluation and assessment reviewed and discussed with my PA. I was fully involved in the evaluation and plan of care this patient. Doctor Ronny. (Cisco Jefferson MD) Lena Grijalva Jul 19, 2016 17:22 Cisco Jefferson MD Aug 22, 2016 11:19
[2016-07-19 17:30] LABS: POTASSIUM 3.8 MEQ/L (3.5-5.1)
--- NOTE | 2016-07-19 18:54 | PD.CONS ---
History of Present Illness Service Neurology Consult Requested By medical Reason for Consult tremors Primary Care Physician Unknown History of Present Illness 85 yo male who presented to this facility on 07/18/16 with complaints of 4 days worth of diarrhea. found to be hypotensive, hyponatremic, etoh level 60, and in renal failure. 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 neuro consulted for tremors/possible pd. pt states he has had a mild tremors with action over the past month. not at rest. uses a walker for balance. no family hx of pd. admits to heavy etoh use. Review of Systems Gastrointestinal: as per med hp/above Past Family Social History Allergies: Coded Allergies: No Known Allergies (Unverified , 07/18/16) Past Medical History Medical history obtained thru previous records: HTN BPH GERD ? CHF Alcohol abuse Past Surgical History Denies Family History Noncontributory Social History Drinks 2 bottles of wine per week (family states he drinks 2 bottles everyday) Non-smoker Lives alone. Review of Systems All other ROS: ROS reviewed as documented in chart Past Family Social History Allergies: Coded Allergies: No Known Allergies (Unverified , 07/18/16) Active Ordered Medications Current Medications Medications (Trade) Dose Ordered Sig/Donny Route Start Time Stop Time Status Last Admin (NS Flush) 2 ml UNSCH PRN IVF 07/18/16 12:15 (Protonix Inj) 40 mg DAILY IV 07/18/16 15:00 07/19/16 09:14 (Heparin Inj) 5,000 units Q12H SQ 07/18/16 15:00 07/19/16 13:15 Miscellaneous Information 1 Q361D XX 07/18/16 14:00 (Chlorhexidine 2% Cloth) 3 pack Taper DAILY@04 TOP 07/19/16 04:00 07/15/17 03:59 07/19/16 04:00 (Chlorhexidine 2% Cloth) 3 pack UNSCH PRN TOP 07/18/16 14:00 (Vitamin B1) 100 mg DAILY PO 07/18/16 15:00 07/19/16 09:14 (Folate) 1 mg DAILY PO 07/18/16 15:00 07/19/16 09:14 Multivitamins 1 tab 1 tab DAILY PO 07/18/16 15:00 07/19/16 09:14 Ceftriaxone Sodium 1000 mg/ Sodium Chloride 100 ml @ 200 mls/hr Q24H IV 07/18/16 15:00 07/19/16 13:15 (D5W-NS 1000 ml Inj) 1,000 ml @ 100 mls/hr Q10H IV 07/18/16 15:00 07/19/16 08:46 (Mycostatin Powder) 1 applic Q12HR TOPICAL 07/18/16 21:00 07/19/16 08:46 (Valium) 2 mg Q8H PO 07/18/16 22:00 07/19/16 13:14 Terbutaline Sulfate 1 mg 1 mg UNSCH PRN SQ 07/18/16 23:30 (Neosynephrine Inj/D5W 500 ml Inj) 500 ml @ 0 mls/hr TITRATE IV 07/18/16 23:30 (Flagyl) 500 mg Q8HR PO 07/19/16 14:00 07/19/16 13:14 (Sinemet 10-100 Mg) 1 tab Q8HR PO 07/19/16 10:45 07/19/16 14:36 Exam I&O / VS 07/18/16 07/18/16 07/19/16 15:00 23:00 07:00 Intake Total 1750 ml Output Total 530 ml 750 ml Balance -530 ml 1000 ml Intake Oral 1750 ml Output Urine Total 530 ml 750 ml Stool Total 0 ml Vital Signs Date Time Temp Pulse Resp B/P Pulse Ox O2 Delivery O2 Flow Rate FiO2 07/19/16 18:00 112 07/19/16 16:00 103 07/19/16 16:00 98.2 103 16 112/56 92 07/19/16 14:00 95 07/19/16 12:00 109 07/19/16 12:00 98.2 109 18 95/55 95 07/19/16 10:00 102 07/19/16 08:39 98 Nasal Cannula 2.00 07/19/16 08:00 98.3 88 20 115/58 94 07/19/16 08:00 88 07/19/16 07:25 98 Nasal Cannula 2.00 07/19/16 06:00 89 07/19/16 04:00 89 07/19/16 04:00 99.0 89 20 90/53 96 07/19/16 02:00 88 07/19/16 00:00 88 07/19/16 00:00 96.0 78 20 92/44 94 07/18/16 22:00 98 07/18/16 20:00 98 07/18/16 20:00 99.7 95 20 85/40 98 General: Alert and Oriented, No acute distress Eye: EOMI Respiratory: Non-labored respirations Neurologic: Alert, Oriented, CN II-XII intact Psychiatric: Cooperative, Appropriate mood & affect Exam Comments alert, sitting up in bed, follows, ox 2-3, not to exact date. ou 3-2 mm, eomi, face sym, no resting tremor, no rigidity in arms, + moderate postural and kinetic tremor in both ue with mild asterixis, redd to gravity, msr tr, no clonus , planter flexor response, gait not assessed 2/2 fall risk Review/Management Diagnosis/Plan: (1) Kinetic tremor Plan: does not appear to be a pd tremor suspect related to renal failure, electrolyte changes and etoh cessation he may be developing an essential tremor; further evaluation for pd would be best done outpatient once all of his acute medical problems have resolved rec does not need sinemet from neuro standpoint consider low dose primidone 25 mg po qhs in a few days if still hospitalized; also of note is on valium which should help will follow with you d/w pt etoh limitation needs outpatient serial neuro evaluation (2) Alcohol dependence, continuous drinking behavior Plan: consider AA support group (3) Asterixis (4) Acute renal failure Plan: followed by renal Problem Qualifiers (1) Acute renal failure: Qualified Code: N17.9 - Acute renal failure, unspecified acute renal failure type Sean Kim MD Jul 19, 2016 18:54
[2016-07-19 22:20] LABS: ALBUMIN SPE 3.02 GM/DL (3.50-5.00); ALPHA 1 GLOBULIN 0.17 GM/DL (0.11-0.29); ALPHA 2 GLOBULIN 0.71 GM/DL (0.22-1.00); BETA GLOBULINS (SPE) 0.49 GM/DL (0.53-1.03)
[2016-07-20] VITALS (14 sets, daily range): BP systolic 94–155; BP diastolic 51–69; PULSE 70–134; RESP 18–24; TEMP 98.3–99.7; O2SAT 95–99
[2016-07-20] MEDS: CHLORHEXIDINE GLUCONATE 2 % 1 PACK (2 CLOTHS) TOP SCH (04:00)
[2016-07-20 04:03] LABS: HEMATOCRIT 32.5 % (39.0-51.0); MEAN CORPUSCULAR HEMOGLOBIN 30.1 PG (27.0-34.0); MEAN CORPUSCULAR HGB CONC 32.4 % (32.0-36.0); PLATELET COUNT 193 TH/MM3 (150-450); RED BLOOD COUNT 3.49 MIL/MM3 (4.50-5.90); RED CELL DISTRIBUTION WIDTH 22.5 % (11.6-17.2); REVIEW FLAG FINAL; WHITE BLOOD COUNT 8.3 TH/MM3 (4.0-11.0)
[2016-07-20 04:26] LABS: BICARBONATE 24.6 MEQ/L (21.0-32.0); POTASSIUM 3.4 MEQ/L (3.5-5.1)
[2016-07-20] MEDS: CARBIDOPA/LEVODOPA 10 MG/100 MG TAB PO SCH (05:55)
[2016-07-20] MEDS: DEXT 5%-NACL 0.9% 1000 ML INJ 1,000 ML IV SCH (05:55)
[2016-07-20] MEDS: metroNIDAZOLE 500 MG TAB PO SCH ×3 (05:55→20:43)
[2016-07-20] MEDS: DIAZEPAM 2 MG TAB PO SCH ×3 (05:55→20:43)
[2016-07-20] MEDS: HEPARIN SODIUM - SQ 10,000 UNITS/ML VIAL SQ SCH ×2 (05:55→15:58)
[2016-07-20] MEDS: NYSTATIN 100,000 U/GM PWD 15 GM BTL TOPICAL SCH ×2 (09:00→20:43)
[2016-07-20] MEDS: THIAMINE HCL 100 MG TAB PO SCH (11:46)
[2016-07-20] MEDS: MULTIVITAMIN TAB PO SCH (11:46)
[2016-07-20] MEDS: PANTOPRAZOLE SODIUM 40 MG VIAL IV SCH (11:46)
[2016-07-20] MEDS: FOLIC ACID 1 MG TAB PO SCH (11:46)
--- NOTE | 2016-07-20 14:11 | HHI.CCPN ---
Subjective Remarks/Hospital Course 07/18/15: 85 year-old male with a past medical history of HTN, BPH, GERD, alcoholism, history of multiple falls, and outpatient treatment of UTI with Cipro, presented from home via EMS for treatment non-bloody diarrhea and generalized weakness x4 days. Denies n/v, abd pain, cough, or constitutional symptoms. On arrival, blood pressure of 142/81 and tachycardic to 120s, found to be in new-onset afib. Received 2L normal saline. Labs significant for hyponatremia (122), ARF (Cr 2.74) with K 4.5, and mild LA elevation to 3.3. Elevated LFTs: AST 115 ALT 110, Lipase 422. U/A +LE w 23 WBC and occasional bacterial. Pt drinks 2 bottles wine/week. EtOH elevated to 60 on admission. 07/18/15 PM: F/U labs: LA 6.7. UOP 750 mL over 8 hr (83 ml/hr). Ordered 1 L LR bolus and about 1/4 is in so far. Alert, denies n/v/abd pain. Abdomen NTTP.Peripherally warm with good cap refill. BP now 94/50 with MAP 67. Lungs clear. 2L NC. Lee with urometer, monitor hourly UOP. Increase MIVF to 150/hr. Active drinker and family very concerned with possibility of EtOH withdrawal ( family states bottle of wine a day). Will initiate valium 2 mg po q8 hours with hold orders for sedation. -> Followed up in 1 hour. When bolus stopped, SBP in 70s. Placed CVL and started levophed. Followed up and lactic acid is normal. Discussed with RN and UOP 75 mL/hr. 07/19/15: No acute events overnight. Pt reports feeling uncomfortable while in bed and repeatedly requests to sit up, though he is already almost vertical in bed. Denies bowel movement since in hospital. Has Lee catheter in place draining pink-tinged urine. 24hr UOP 1.2L. Tachycardia improved, pulse currently at 90. Remains hypotensive to 90/50, on Jef-Synephrine. Will wean pressors today as tolerated. Satting 98% on 2L NC. We'll also wean today as tolerated. Lactic acid wnl. Elevated AST/ALT improving. Lipase increased slightly, 400 to 510. On ceftriaxone, Flagyl for UTI. UCx pending. 07/30/15: No acute events overnight. Pt c/o inability to get comfortable in bed- continually shifting and feels need to "sit up" (despite being propped with several pillows). UOP increased to 1.5L over last 24hr. Receiving fluids at 120mL/hr. Hypotension improved- now normotensive and off pressors. Afebrile. Pulse 70. Increased O2 requirement now of 5L. Per nursing, no desaturations or other precipitating issues. Wean to RA, as tolerated. Objective Vital Signs Date Time Temp Pulse Resp B/P Pulse Ox O2 Delivery O2 Flow Rate FiO2 07/20/16 12:00 76 07/20/16 10:15 95 Nasal Cannula 5.00 07/20/16 04:00 98.5 24 155/69 Intake and Output 07/19/16 07/19/16 07/20/16 08:00 16:00 00:00 Intake Total 1750 ml 1147 ml 1031 ml Output Total 750 ml 800 ml 450 ml Balance 1000 ml 347 ml 581 ml Result Diagram: 07/20/16 0326 07/20/16 0326 Other Results CONSTITUTIONAL: Adult male in moderate positional distress, shifting in bed DERM: Warm and dry HEENT: EOMI. PERRL. No scleral icterus. MMM.. NECK: No LAD CV: Tachycardic. Irregular rhythm. No murmurs. 2+ peripheral edema in LE to knee. RESP: Lungs CTAB. No wheezes or rales. Good air movement. Non-labored breathing on room air. NC in place. GI: Abdomen obese, NTND. +BS. MSK: Symmetrical muscle tone NEURO: Oriented to person, year/month, state/city, reason why in hospital. No facial droop. Severe resting tremor of UE bilaterally, L worse than R. Decreased with intentional movement. Unable to lift lower extremities against gravity. Unable to ABduct L shoulder more than 50. SILT x4 extremities. PSYCH: Somewhat flattened affect. Appropriate tone, responses. Imaging Last Impressions Renal Ultrasound 07/18/16 0000 Signed Impressions: Service Date/Time: Monday, July 18, 2016 21:19 - CONCLUSION: 1. Simple cysts in the left kidney. Otherwise, unremarkable exam. Gerson Zhang Jr., MD Chest X-Ray 07/18/16 0000 Signed Impressions: Service Date/Time: Monday, July 18, 2016 23:24 - CONCLUSION: 1. Left- sided central line without pneumothorax. Gerson Zhang Jr., MD Abdomen/Pelvis CT 07/18/16 0000 Signed Impressions: Service Date/Time: Monday, July 18, 2016 14:48 - CONCLUSION: 1. 12 mm x 8 mm nodule right middle lobe. Further evaluation with chest CT recommended. 2. Diffuse fatty liver. 3. Numerous gallstones lodged in gallbladder neck. Gallbladder not significantly distended. Probable gallbladder sludge present. 4. Multiple left renal cysts. Juan Carlos Ivan MD Procedures 07/18/15: IJ CVL insertion Urinary Catheter: Yes Assessment to: Continue Lee insert reason: Measure Accurate Output Date of Insertion: Jul 18, 2016 Vascular Central Line Catheter: Yes Assessment to: Continue Date of Insertion: Jul 18, 2016 Line: Central Venous Catheter Side: Left Location: Jugular A/P Assessment and Plan ASSESSMENT: 85y male admitted 07/18/15 with: Resting tremor-alcohol withdrawal vs essential tremor vs Parkinson's disease Ataxic gait with history of multiple falls Hypotension on admission, with history of chronic hypertension New-onset afiB with RVR on admission, resolved Diarrhea, likely secondary to antibiotics, resolved. Rule out C. diff pending GERD Cholelithiasis Dehydration, resolving Acute renal failure UTI, failed outpatient treatment with Cipro, urine culture NG2D Hyponatremia, resolved Mild lactic acidemia, resolved Elevated liver enzymes, resolving Alcohol abuse, one bottle of wine daily per family, history of shaking/ withdrawal BPH L rotator cuff pathology PLAN: Neuro: Monitor status, watch for signs of DT. Ativan PRN seizures + CIWA protocol. Continue thiamine, folic acid, multivitamin. Neuro consult believed tremor more suggestive of resting tremor vs alcohol withdrawal, not PD. Will discontinue Sinemet 10/100 TID and monitor for response. Suspect may see increased resting tremor and increased cogwheeling. Resp: Continue oximetry and O2 mentation to maintain sats 90%+. DuoNeb PRN. O2 requirement increased to 5L. Wean to room air, as tolerated. CV: New-onset A. fib on arrival, likely precipitated by dehydration. HR remains irregular, but now rate controlled. Hypotension on admission resolved s/p fluid resuscitation. TSH wnl. Decrease IVF to 60cc/hr. Start ASA 325mg daily for stroke prophylaxis. Poor candidate for anticoagulation due to falls. GI/Liver: Diarrhea appears resolved since admission. Likely secondary to recent outpatient Cipro use for UTI Continue fluid rehydration. C diff PCR pending. Per dietary, soft regular diet, thin liquids. Incidental cholelithiasis per CT a/p. Lactic acid peaked at 6.7, now wnl. Hepatitis panel negative Renal/FEN: Monitor I/O. Acute renal failure, Cr 2.8 on admission, downtrending , now 1.6. Daily BMPs. Avoid nephrotoxic agents. Fluid rehydration, but continue to wean. Monitor and replete electrolytes as necessary. Soft regular diet. Discontinue lee catheter. Endo: SSI PRN glucose control. Heme: Normocytic anemia. Monitor with daily CBCs. ID: UTI per UA, refractory to outpatient treatment with Cipro. Urine culture and blood cultures negative. Continue ceftriaxone IV and Flagyl PO. CXR w/ o infiltrate. Prophylaxis: SCDs, prophylactic heparin, continue home PPI SDW: Dr. Weiss Addendum: Patient seen and examined earlier. Discussed findings, assessment and plan with Dr. Bernstein Agree with above note. Patient will be transferred out of ICU. Consult and transfer to hospitalist service for further medical management Yaima Guo MD R1 Jul 20, 2016 14:11 García Weiss MD Jul 20, 2016 16:15
[2016-07-20] MEDS: cefTRIAXone INJ 1,000 MG in SODIUM CHLORIDE 0.9% INJ 100 ML IV SCH (15:57)
--- NOTE | 2016-07-20 17:25 | HHI.NPPN ---
Subjective History of Present Illness The patient is an 85 yo male who presented to this facility on 07/18/16 with complaints of 4 days worth of diarrhea. He does not appear to be a very reliable historian, but denies any other symptoms accompanying his diarrhea. Diarrhea started when he was given Cipro for a UTI by his PCP. BP on arrival was normal, but he shortly became hypotensive and tachycardiac and was given IVF resuscitation. He is now in the ICU on Levophed for BP for hypotension. He does not have any other admissions to compare, but on arrival his SCr was 2.74 labs improved to 2.29 at time of consult. His Na on admission was also low at 122 that has improved to 130 today. He states he drinks 2 bottles of wine per week, but according to his family (not present but relayed to the RN) he drinks about 2 bottles of wine per day. His PMHx was obtained thru other records as he claims he has no medical history besides hypertension. Home medications include Lasix 20mg BID, but he states he has no cardiac history. Interval History Feeling much better today. Off pressors. Off O2 (Lena Grijalva) Objective Data Data 07/19/16 07/20/16 19:00 07:00 Intake Total 1147 ml 1875 ml Output Total 800 ml 700 ml Balance 347 ml 1175 ml Intake Oral 340 ml IV Total 807 ml 1875 ml Output Urine Total 800 ml 700 ml # Bowel Movements 2 Vital Signs Date Time Temp Pulse Resp B/P Pulse Ox O2 Delivery O2 Flow Rate FiO2 07/20/16 16:00 88 07/20/16 14:00 70 07/20/16 12:00 76 07/20/16 10:15 95 Nasal Cannula 5.00 07/20/16 10:00 73 07/20/16 08:00 79 07/20/16 06:00 74 07/20/16 04:00 98.5 97 24 155/69 96 07/20/16 04:00 74 07/20/16 02:00 94 07/20/16 00:00 94 07/20/16 00:00 99.7 94 24 123/59 96 07/19/16 22:00 78 07/19/16 20:30 97 Nasal Cannula 5.00 07/19/16 20:00 78 07/19/16 20:00 99.7 85 20 100/55 98 1/4/17 18:00 112 (Lena Grijalva) -: 07/20/16 0326 07/20/16 0326 Imaging Last Impressions Renal Ultrasound 07/18/16 0000 Signed Impressions: Service Date/Time: Monday, July 18, 2016 21:19 - CONCLUSION: 1. Simple cysts in the left kidney. Otherwise, unremarkable exam. Gerson Zhang Jr., MD Chest X-Ray 07/18/16 0000 Signed Impressions: Service Date/Time: Monday, July 18, 2016 23:24 - CONCLUSION: 1. Left- sided central line without pneumothorax. Gerson Zhang Jr., MD Abdomen/Pelvis CT 07/18/16 0000 Signed Impressions: Service Date/Time: Monday, July 18, 2016 14:48 - CONCLUSION: 1. 12 mm x 8 mm nodule right middle lobe. Further evaluation with chest CT recommended. 2. Diffuse fatty liver. 3. Numerous gallstones lodged in gallbladder neck. Gallbladder not significantly distended. Probable gallbladder sludge present. 4. Multiple left renal cysts. Juan Carlos Ivan MD Medication Review Current Medications Medications (Trade) Dose Ordered Sig/Donny Route Start Time Stop Time Status Last Admin (NS Flush) 2 ml UNSCH PRN IVF 07/18/16 12:15 (Protonix Inj) 40 mg DAILY IV 07/18/16 15:00 07/20/16 11:46 (Heparin Inj) 5,000 units Q12H SQ 07/18/16 15:00 07/20/16 15:58 Miscellaneous Information 1 Q361D XX 07/18/16 14:00 (Chlorhexidine 2% Cloth) 3 pack Taper DAILY@04 TOP 07/19/16 04:00 07/15/17 03:59 07/19/16 04:00 (Chlorhexidine 2% Cloth) 3 pack UNSCH PRN TOP 07/18/16 14:00 (Vitamin B1) 100 mg DAILY PO 07/18/16 15:00 07/20/16 11:46 (Folate) 1 mg DAILY PO 07/18/16 15:00 07/20/16 11:46 Multivitamins 1 tab 1 tab DAILY PO 07/18/16 15:00 07/20/16 11:46 Ceftriaxone Sodium 1000 mg/ Sodium Chloride 100 ml @ 200 mls/hr Q24H IV 07/18/16 15:00 07/20/16 15:57 (D5W-NS 1000 ml Inj) 1,000 ml @ 60 mls/hr [id number] IV 07/18/16 15:00 07/20/16 05:55 (Mycostatin Powder) 1 applic Q12HR TOPICAL 07/18/16 21:00 07/20/16 09:00 (Valium) 2 mg Q8H PO 07/18/16 22:00 07/20/16 14:00 Terbutaline Sulfate 1 mg 1 mg UNSCH PRN SQ 07/18/16 23:30 (Neosynephrine Inj/D5W 500 ml Inj) 500 ml @ 0 mls/hr TITRATE IV 07/18/16 23:30 (Flagyl) 500 mg Q8HR PO 07/19/16 14:00 07/20/16 14:00 (Aspirin) 325 mg DAILY PO 07/20/16 16:15 (Lena Grijalva) Physical Exam General Appearance: No Acute Distress, Comfortable (Lena Grijalva) Neck Neck Exam: Trachea Midline (Lena Grijalva) Pulmonary Resp Exam: Clear Bilaterally, Breath Sounds Equal (Lena Grijalva) Cardiology CV Exam: Irregular, Arrhythmia (Lena Grijalva) Gastrointestinal/Abdomen GI Exam: Soft, Non-Tender (Lena Grijalva) Extremeties Extremities Exam: Moderate Edema Extremeties Remarks 2+ pitting edema BLE up to thighs. (Lena Grijalva) Neurologic Neuro Exam: Alert, Awake Neuro Remarks Tremor in bilat hands L>R (Lena Grijalva) Psychiatric Psych Exam: Appropriate Responses (Lena Grijalva) Assessment/Plan Problem List: (1) Acute renal insufficiency Plan: Renal functions have improved with IV fluid suggesting acute renal decline related to volume depletion from recent diarrhea and likely EtOH abuse. He has also been hypotensive requiring pressor support so some renal decline may be related to hypoperfusion. He is not a clear historian regarding his medical conditions, but does not recall ever being told he had chronic renal disease. There are no other admission for comparison. Renal US reviewed and shows no evidence of increased echogenicity which would indicate medical renal disease. We are screening for other causes of renal disease, all of which are pending. Continue on IVF for the present. Consider decreasing once po intake improved Some edema likely related to hypoalbuminemia. The patient likely is not eating well as an outpatient given his clinical appearance. Medications should be adjusted for the patient's renal decline. Avoid nephrotoxic agents including NSAIDs and iodinated contrast dyes. Avoid gadolinium when eGFR <30. (2) Hyponatremia Plan: Improving with IVF. Likely related to volume depletion as well as suspected malnutrition given his hypoalbuminemia. EtOH abuse can also cause hyponatremia related to paucity of osmoles required for adequate ADH secretion. (3) Atrial fibrillation, new onset Plan: Mgmt as per cardiology (4) Alcohol dependence, continuous drinking behavior Plan: Once patient more stable, discussion should be had about EtOH cessation Ab CT showed evidence of fatty liver infiltration. No cirrhosis noted. Hepatitis panel negative (5) Diarrhea Plan: w/u as per primary (6) Lung nodule Plan: Detected on CT abdomen. Will defer w/u to primary. (Lena Grijalva) Plan Physical examination, evaluation and assessment reviewed and discussed with my PA. I was fully involved in the evaluation and plan of care this patient. Doctor Ronny. (Cisco Jefferson MD) Lena Grijalva Jul 20, 2016 17:25 Cisco Jefferson MD Aug 22, 2016 11:22
[2016-07-20] MEDS: ASPIRIN 325 MG TAB PO SCH (17:52)
[2016-07-20] MEDS ORDERED: POTASSIUM CHLORIDE 20 MEQ CONTROLLED RELEASE TAB PO ONE (18:00)
[2016-07-20] MEDS ORDERED: AMIODARONE 150 MG/D5W 97 ML BOLUS 10 MINUTES IV ONE ×2 (20:30)
[2016-07-21] VITALS (11 sets, daily range): BP systolic 79–147; BP diastolic 57–113; PULSE 84–130; RESP 16–24; TEMP 98.2–99; O2SAT 93–97
[2016-07-21] MEDS: HEPARIN SODIUM - SQ 10,000 UNITS/ML VIAL SQ SCH ×2 (03:00→18:24)
[2016-07-21 03:53] LABS: KAPPA/LAMBDA FREE 1.86 (0.26-1.65)
[2016-07-21] MEDS: CHLORHEXIDINE GLUCONATE 2 % 1 PACK (2 CLOTHS) TOP SCH (04:00)
[2016-07-21] MEDS: DEXT 5%-NACL 0.9% 1000 ML INJ 1,000 ML IV SCH ×2 (04:02→19:42)
[2016-07-21] MEDS: DIAZEPAM 2 MG TAB PO SCH ×3 (06:05→20:53)
[2016-07-21] MEDS: metroNIDAZOLE 500 MG TAB PO SCH (06:05)
[2016-07-21 06:39] LABS: BICARBONATE 23.3 MEQ/L (21.0-32.0); POTASSIUM 3.7 MEQ/L (3.5-5.1)
--- NOTE | 2016-07-21 08:21 | HHI.PR ---
Review/Management Diagnosis/Plan: (1) Kinetic tremor Plan: does not appear to be a pd tremor suspect related to renal failure, electrolyte changes and etoh cessation he may be developing an essential tremor; further evaluation for pd would be best done outpatient once all of his acute medical problems have resolved rec doing better; no asterixis today no rigidity on exam sinemet dc'd for now serial neuro exams (2) Alcohol dependence, continuous drinking behavior Plan: consider AA support group (3) Asterixis (4) Acute renal failure Plan: followed by renal Subjective Subjective Comments No acute events reported "my left arm has been weak 2/2 my shoulder; tremors in left hand x 1 week" No headache No chest pain No dyspnea Active Medications Current Medications Medications (Trade) Dose Ordered Sig/Donny Route Start Time Stop Time Status Last Admin (NS Flush) 2 ml UNSCH PRN IVF 07/18/16 12:15 (Protonix Inj) 40 mg DAILY IV 07/18/16 15:00 07/20/16 11:46 (Heparin Inj) 5,000 units Q12H SQ 07/18/16 15:00 07/21/16 03:00 Miscellaneous Information 1 Q361D XX 07/18/16 14:00 (Chlorhexidine 2% Cloth) 3 pack Taper DAILY@04 TOP 07/19/16 04:00 07/15/17 03:59 07/21/16 04:00 (Chlorhexidine 2% Cloth) 3 pack UNSCH PRN TOP 07/18/16 14:00 (Vitamin B1) 100 mg DAILY PO 07/18/16 15:00 07/20/16 11:46 (Folate) 1 mg DAILY PO 07/18/16 15:00 07/20/16 11:46 Multivitamins 1 tab 1 tab DAILY PO 07/18/16 15:00 07/20/16 11:46 Ceftriaxone Sodium 1000 mg/ Sodium Chloride 100 ml @ 200 mls/hr Q24H IV 07/18/16 15:00 07/20/16 15:57 (D5W-NS 1000 ml Inj) 1,000 ml @ 60 mls/hr [id number] IV 07/18/16 15:00 07/21/16 04:02 (Mycostatin Powder) 1 applic Q12HR TOPICAL 07/18/16 21:00 07/20/16 20:43 (Valium) 2 mg Q8H PO 07/18/16 22:00 07/21/16 06:05 Terbutaline Sulfate 1 mg 1 mg UNSCH PRN SQ 07/18/16 23:30 (Neosynephrine Inj/D5W 500 ml Inj) 500 ml @ 0 mls/hr TITRATE IV 07/18/16 23:30 (Flagyl) 500 mg Q8HR PO 07/19/16 14:00 07/21/16 06:05 (Aspirin) 325 mg DAILY PO 07/20/16 16:15 07/20/16 17:52 Allergies Allergies Coded Allergies No Known Allergies (Unverified07/18/16) Review of Systems All other ROS: ROS reviewed as documented in chart Exam I&O / VS 07/20/16 07/20/16 07/21/16 15:00 23:00 07:00 Intake Total 1142 ml 720 ml 537 ml Output Total 300 ml 275 ml 250 ml Balance 842 ml 445 ml 287 ml Intake Oral 240 ml IV Total 1142 ml 480 ml 537 ml Output Urine Total 300 ml 275 ml 250 ml # Bowel Movements 0 0 Vital Signs Date Time Temp Pulse Resp B/P Pulse Ox O2 Delivery O2 Flow Rate FiO2 07/21/16 06:00 118 07/21/16 04:00 94 07/21/16 04:00 98.6 94 18 126/65 94 07/21/16 02:00 103 07/21/16 00:00 128 07/21/16 00:00 98.4 128 24 79/60 94 07/20/16 22:00 121 07/20/16 20:00 98.8 134 23 94/58 98 07/20/16 20:00 134 07/20/16 19:18 97 21 07/20/16 18:00 72 07/20/16 16:00 99.1 116 18 112/61 96 07/20/16 16:00 88 07/20/16 14:00 70 07/20/16 12:00 98.7 96 19 104/51 99 07/20/16 12:00 76 07/20/16 10:15 95 Nasal Cannula 5.00 07/20/16 10:00 73 General: Alert and Oriented, No acute distress Eye: EOMI Respiratory: Non-labored respirations Neurologic: Alert, Oriented, CN II-XII intact Psychiatric: Cooperative, Appropriate mood & affect Exam Comments alert, follows, ox 2-3, not to exact date. ou 3-2 mm, eomi, face sym mild left hand resting and action tremor, no rigidity in arms, no asterixis today, redd to gravity, msr tr, no clonus, planter flexor response, gait not assessed 2/2 fall risk Objective Micro and Labs Laboratory Tests Test 07/21/16 04:48 Sodium Level 135 Potassium Level 3.7 Chloride Level 101 Carbon Dioxide Level 23.3 Anion Gap 11 Blood Urea Nitrogen 14 Creatinine 1.25 Estimat Glomerular Filtration 55 Rate Random Glucose 97 Calcium Level 7.7 Phosphorus Level 0.5 Albumin 2.5 Date/Time Procedure Status Source Growth 07/18/16 12:25 Urine Culture - Final Complete Urine Random Urine NO GROWTH IN 48 HOURS. 07/18/16 12:15 Aerobic Blood Culture - Preliminary Resulted Blood Peripheral NO GROWTH IN 2 DAYS 07/18/16 12:15 Anaerobic Blood Culture - Preliminary Resulted Blood Peripheral NO GROWTH IN 2 DAYS Problem Qualifiers (1) Acute renal failure: Qualified Code: N17.9 - Acute renal failure, unspecified acute renal failure type Sean Kim MD Jul 21, 2016 08:21
--- NOTE | 2016-07-21 09:14 | HHI.PR ---
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 Patient seen in follow-up for new onset A. fib, ataxic gait with history of multiple falls, resting tremors and multiple other comorbid conditions. He reports that he is feeling better overall except for generalized weakness. He went into A. fib with RVR overnight and was given a bolus of amiodarone IV. This morning his heart rate is in the 130s again. He denies shortness of breath or chest pain. Objective Vitals Vital Signs Date Time Temp Pulse Resp B/P Pulse Ox O2 Delivery O2 Flow Rate FiO2 07/21/16 06:00 118 07/21/16 04:00 94 07/21/16 04:00 98.6 94 18 126/65 94 07/21/16 02:00 103 07/21/16 00:00 128 07/21/16 00:00 98.4 128 24 79/60 94 07/20/16 22:00 121 07/20/16 20:00 98.8 134 23 94/58 98 07/20/16 20:00 134 07/20/16 19:18 97 21 07/20/16 18:00 72 07/20/16 16:00 99.1 116 18 112/61 96 07/20/16 16:00 88 07/20/16 14:00 70 07/20/16 12:00 98.7 96 19 104/51 99 07/20/16 12:00 76 07/20/16 10:15 95 Nasal Cannula 5.00 07/20/16 10:00 73 I/O 07/20/16 07/20/16 07/20/16 07/21/16 07/21/16 07/21/16 07:00 15:00 23:00 07:00 15:00 23:00 Intake Total 844 ml 1142 ml 720 ml 537 ml Output Total 250 ml 300 ml 275 ml 250 ml Balance 594 ml 842 ml 445 ml 287 ml Intake Oral 240 ml IV Total 844 ml 1142 ml 480 ml 537 ml Output Urine Total 250 ml 300 ml 275 ml 250 ml # Bowel Movements 0 0 Result Diagram: 07/20/16 0326 07/21/16 0448 Imaging Last Impressions Renal Ultrasound 07/18/16 0000 Signed Impressions: Service Date/Time: Monday, July 18, 2016 21:19 - CONCLUSION: 1. Simple cysts in the left kidney. Otherwise, unremarkable exam. Gerson Zhang Jr., MD Chest X-Ray 07/18/16 0000 Signed Impressions: Service Date/Time: Monday, July 18, 2016 23:24 - CONCLUSION: 1. Left- sided central line without pneumothorax. Gerson Zhang Jr., MD Abdomen/Pelvis CT 07/18/16 0000 Signed Impressions: Service Date/Time: Monday, July 18, 2016 14:48 - CONCLUSION: 1. 12 mm x 8 mm nodule right middle lobe. Further evaluation with chest CT recommended. 2. Diffuse fatty liver. 3. Numerous gallstones lodged in gallbladder neck. Gallbladder not significantly distended. Probable gallbladder sludge present. 4. Multiple left renal cysts. Juan Carlos Ivan MD Objective Remarks CONSTITUTIONAL/GENERAL: Obese male in no acute distress. EYES: Pupils equal and round and reactive. No injection or drainage. ENT: Hearing grossly normal. Nose without drainage. NECK: Trachea midline. Neck is supple, non-tender. CARDIOVASCULAR: Rate in the 130. Irregular rhythm. No appreciable murmurs. Peripheral pulses 2+ and symmetric. RESPIRATORY/CHEST: Symmetric, unlabored respirations. Breath sounds equal and clear to auscultation bilaterally. No wheezes, crackles, rales, or rhonchi. GASTROINTESTINAL: Abdomen soft, obese, non-tender. Bowel sounds present. MUSCULOSKELETAL: Extremities without clubbing, cyanosis, or edema. Left shoulder joint with limited ROM for abduction due to pain. Left shoulder tender to palpation. NEUROLOGICAL: Awake and alert. Move all extremities spontaneously. No focal deficits. PSYCHIATRIC: No obvious mood problems. No apparent hallucinations or other psychotic thought process. Procedures 07/18/15: IJ CVL insertion Date of Insertion: Jul 18, 2016 Date of Insertion: Jul 18, 2016 Line: Central Venous Catheter Side: Left Location: Jugular A/P Assessment and Plan 85-year-old male initially admitted for multiple falls, ataxic gait, hypotensive on admission, new onset A. fib with RVR and a persistent bilateral upper extremity tremors, alcohol abuse. Paroxysmal A. fib with RVR: No known history of A. fib. Patient went into A. fib with RVR again last night and was given a bolus of amiodarone. Cardiology has been consulted. - Rate uncontrolled again this morning in the 130s. Give a dose of Cardizem IV 15 mg 1 and start by mouth Cardizem 30 mg 4 times a day. - Cardiology consulted. Patient was started on aspirin. Believed to be a high fall risk. Further plans per cardiology. Resting tremor, ataxic gait with history of multiple falls: Neurology following to suggest the tremor is likely to be essential. May need outpatient follow-up for further workup to rule out Parkinson's disease. - Sinemet has been discontinued. Patient reports that it is improving. Alcohol abuse/withdrawal: May be contributing to the tremor above. Patient drinks a couple bottles of wine daily. - Currently getting Valium 2 mg every 8 hours. Decrease to 1 mg today. Hypotension on admission, with history of chronic hypertension: - Lisinopril on hold. May need to resume once heart rate is better control and blood pressure started coming up. Acute renal failure: Resolving. Appreciate nephrology following. Thought to be due to volume depletion. Continue IV fluid, currently at 60 cc per hour. Will wean off and discontinue once he is taking enough by mouth. UTI, patient was on Cipro outpatient. Urine culture here is negative. He received 3 days of Rocephin. Discontinue antibiotics. BPH: Resume Flomax. Left shoulder pain after fall: Patient having problem with abduction. He probably has a rotator cuff injury. When he is more stable, would obtain further imaging. Lung nodule: Discovered on chest x-ray. Will obtain follow-up CT when the patient is more stable. GI prophylaxis: Stool softener PRN constipation. DVT PPx: Heparin Pratik Caal MD Jul 21, 2016 09:14
[2016-07-21] MEDS: THIAMINE HCL 100 MG TAB PO SCH (09:19)
[2016-07-21] MEDS: MULTIVITAMIN TAB PO SCH (09:19)
[2016-07-21] MEDS: ASPIRIN 325 MG TAB PO SCH (09:19)
[2016-07-21] MEDS: FOLIC ACID 1 MG TAB PO SCH (09:19)
[2016-07-21] MEDS: PANTOPRAZOLE SODIUM 40 MG VIAL IV SCH (09:19)
[2016-07-21] MEDS: NYSTATIN 100,000 U/GM PWD 15 GM BTL TOPICAL SCH ×2 (09:20→20:53)
[2016-07-21] MEDS ORDERED: DILTIAZEM HCL 25 MG/5 ML VIAL IV ONE (09:30)
[2016-07-21] MEDS ORDERED: PILL SPLITTER OTHER PRN (10:15)
--- NOTE | 2016-07-21 11:23 | RADRPT ---
EXAM DATE/TIME: 07/21/2016 09:49 [facility] COMPARISON: No previous studies available for comparison. INDICATIONS : Left shoulder pain. MEDICAL HISTORY : Hypertension. Congestive heart failure. Gastroesophageal reflux disease. SURGICAL HISTORY : Rotator cuff repair ENCOUNTER: Subsequent ACUITY: 3 days PAIN SCORE: 6/10 LOCATION: Left Shoulder. FINDINGS: Two view examination of the left shoulder demonstrates no evidence of fracture or dislocation. 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 Previous rotator cuff repair with surgical anchors present. CONCLUSION: 1. No fracture or dislocation. Moderate osteoarthritis. Surgical anchors from previous rotator cuff r epair. Juan Carlos Ivan MD on July 21, 2016 at 11:21 Board Certified Radiologist. This report was verified electronically.
[2016-07-21] MEDS: DILTIAZEM HCL 30 MG TAB PO SCH ×3 (12:37→20:53)
--- NOTE | 2016-07-21 13:24 | MB ---
cc: JORGE LUIS ALLEN DO DATE OF CONSULTATION: 07/21/2016 REASON FOR CONSULTATION Atrial fibrillation with rapid ventricular response. HISTORY OF PRESENT ILLNESS Edmar Shaw is an 85-year-old male who presented to [facility] Emergency Room on July 18, 2016 due to diarrhea for the past 4 days. The patient was noted to have a UTI 4-5 days ago and was placed on ciprofloxacin. Since then he started having diarrhea, he says to the point where he does not even known he will having diarrhea. He has multiple skin breakdowns per the emergency room due to the diarrhea. He denies fevers or chills, chest pain or shortness of breath. During his hospital stay he was found to have atrial fibrillation with rapid ventricular response. Last night he appeared to have an episode where his heart rate was around 130 and he was given amiodarone. Then this morning he was noted again to have an episode and was treated with Cardizem IV and then given Cardizem p.o. four times a day. He states that he had no prior history of atrial fibrillation. PAST MEDICAL HISTORY 1. Hypertension. 2. BPH. 3. GERD. 4. Questionable history of congestive heart failure. PAST SURGICAL HISTORY Denies. ALLERGIES No known drug allergies. MEDICATIONS 1. Flomax 0.4 mg daily. 2. Lisinopril 10 mg daily. 3. Lasix 20 mg b.i.d. 4. Aspirin 325 mg daily. 5. Omeprazole 20 mg daily. 6. Recently started ciprofloxacin 500 mg b.i.d. FAMILY HISTORY Denies premature coronary artery disease or sudden cardiac within the family. SOCIAL HISTORY The patient states that he drinks two bottles of wine a week, but records show concern for drinking 1-2 bottles every day. He denies smoking. He lives alone. REVIEW OF SYSTEMS 14 systems were reviewed including osteopathic and pertinent positives and negatives as above, otherwise negative. PHYSICAL EXAMINATION VITAL SIGNS: Temperature 98.6, heart rate 84, blood pressure 126/65, respirations 18, pulse ox 94%. GENERAL: In the patient appears well in no acute distress, alert and awake. HEENT: Extraocular muscles are intact. Mucous membranes are moist. NECK: Supple. No JVD at 45 degrees. No carotid bruits heard bilaterally. Carotid upstroke is brisk in nature. HEART: Irregularly irregular. Positive first and second heart sounds are noted. No murmurs, gallops or rubs. LUNGS: Decreased breath sounds at bilateral bases but no overt wheezes, rales or rhonchi. ABDOMEN: Soft, nontender, nondistended. No organomegaly noted. EXTREMITIES: Trace edema but no cyanosis or clubbing. Distal pulses intact bilaterally. NEUROLOGIC: No focal deficits. SKIN: Warm, dry and intact. MUSCULOSKELETAL: Osteopathically, mild kyphoscoliosis, no lordosis or paraspinal tender points. LABORATORY DATA Hemoglobin 10.5, hematocrit 32.5, platelets 193. Potassium 3.7, BUN 14, creatinine 1.25 down from 2.81. Lactic acid previously 6.7 down to 1.1. EKG DATA Electrocardiogram (July 20, 2016 at 1739): Atrial flutter with rapid ventricular response, right bundle branch block. IMPRESSION 1. Atrial fibrillation/atrial flutter with rapid ventricular response, new onset, possibly due to severe dehydration. 2. Severe dehydration/acute kidney injury due to extensive diarrhea. 3. Diarrhea possibly due to ciprofloxacin. 4. Urinary tract infection. 5. Resting tremor. 6. Alcohol abuse, possible withdrawal. 7. Hypotension on admission due to dehydration. RECOMMENDATIONS 1. Mr. Shaw' atrial fibrillation seemed to have responded well to Cardizem. We will attempt to start him on Cardizem 30 mg four times a day. 2. As far as anticoagulation goes he does not appear to be a good candidate with multiple falls in the past as well as his family's concern for his alcohol habit. Will start him on aspirin for this. 3. Will check a 2-D echo to look at his overall left ventricular function, cardiac structure and valvulopathies. 4. Further recommendations will be based on hospital course. Thank you for allowing me to see Edmar Shaw. If there are any questions, please do not hesitate to call. Jorge Luis Allen DO VGP/BT /12:34 PM /12:59 PM
--- NOTE | 2016-07-21 14:38 | EKG ---
Date Performed: 07/20/2016 Time Performed: 17:39:55 PTAGE: 85 years EKG: ATRIAL FLUTTER/TACHYCARDIA WITH RAPID VENTRICULAR RESPONSE INTRAVENTRICULAR CONDUCTION CECILIO Y ABNORMAL ECG PREVIOUS TRACING : 07/18/2016 12.02 Since previous tracing, no significant change noted DOCTOR: Melissa Hewitt Interpretating Date/Time 07/21/2016 14:34:42
--- NOTE | 2016-07-21 17:19 | HHI.NPPN ---
Subjective History of Present Illness The patient is an 85 yo male who presented to this facility on 07/18/16 with complaints of 4 days worth of diarrhea. He does not appear to be a very reliable historian, but denies any other symptoms accompanying his diarrhea. Diarrhea started when he was given Cipro for a UTI by his PCP. BP on arrival was normal, but he shortly became hypotensive and tachycardiac and was given IVF resuscitation. He is now in the ICU on Levophed for BP for hypotension. He does not have any other admissions to compare, but on arrival his SCr was 2.74 labs improved to 2.29 at time of consult. His Na on admission was also low at 122 that has improved to 130 today. He states he drinks 2 bottles of wine per week, but according to his family (not present but relayed to the RN) he drinks about 2 bottles of wine per day. His PMHx was obtained thru other records as he claims he has no medical history besides hypertension. Home medications include Lasix 20mg BID, but he states he has no cardiac history. Interval History The patient is again feeling better. No new complaints besides just generalized muscle aches from laying in bed. ( Lena Grijalva) Objective Data Data 07/20/16 07/21/16 19:00 07:00 Intake Total 1142 ml 1257 ml Output Total 300 ml 525 ml Balance 842 ml 732 ml Intake Oral 240 ml IV Total 1142 ml 1017 ml Output Urine Total 300 ml 525 ml # Bowel Movements 0 Vital Signs Date Time Temp Pulse Resp B/P Pulse Ox O2 Delivery O2 Flow Rate FiO2 07/21/16 16:00 99.0 95 19 129/57 97 07/21/16 16:00 85 07/21/16 14:00 100 07/21/16 12:00 98.2 111 18 138/65 94 07/21/16 12:00 84 07/21/16 10:00 88 07/21/16 08:00 98.3 130 20 123/64 93 07/21/16 08:00 92 07/21/16 06:00 118 07/21/16 04:00 94 07/21/16 04:00 98.6 94 18 126/65 94 07/21/16 02:00 103 07/21/16 00:00 128 07/21/16 00:00 98.4 128 24 79/60 94 07/20/16 22:00 121 07/20/16 20:00 98.8 134 23 94/58 98 07/20/16 20:00 134 07/20/16 19:18 97 21 07/20/16 18:00 72 (Lena Grijalva) -: 07/20/16 0326 07/21/16 0448 Imaging Last Impressions Shoulder X-Ray 07/21/16 0000 Signed Impressions: Service Date/Time: Thursday, July 21, 2016 09:49 - CONCLUSION: 1. No fracture or dislocation. Moderate osteoarthritis. Surgical anchors from previous rotator cuff repair. Juan Carlos Ivan MD Renal Ultrasound 07/18/16 0000 Signed Impressions: Service Date/Time: Monday, July 18, 2016 21:19 - CONCLUSION: 1. Simple cysts in the left kidney. Otherwise, unremarkable exam. Gerson Zhang Jr., MD Chest X-Ray 07/18/16 0000 Signed Impressions: Service Date/Time: Monday, July 18, 2016 23:24 - CONCLUSION: 1. Left- sided central line without pneumothorax. Gerson Zhang Jr., MD Abdomen/Pelvis CT 07/18/16 0000 Signed Impressions: Service Date/Time: Monday, July 18, 2016 14:48 - CONCLUSION: 1. 12 mm x 8 mm nodule right middle lobe. Further evaluation with chest CT recommended. 2. Diffuse fatty liver. 3. Numerous gallstones lodged in gallbladder neck. Gallbladder not significantly distended. Probable gallbladder sludge present. 4. Multiple left renal cysts. Juan Carlos Ivan MD Medication Review Current Medications Medications (Trade) Dose Ordered Sig/Donny Route Start Time Stop Time Status Last Admin (NS Flush) 2 ml UNSCH PRN IVF 07/18/16 12:15 (Protonix Inj) 40 mg DAILY IV 07/18/16 15:00 07/21/16 09:19 (Heparin Inj) 5,000 units Q12H SQ 07/18/16 15:00 07/21/16 03:00 Miscellaneous Information 1 Q361D XX 07/18/16 14:00 (Chlorhexidine 2% Cloth) 3 pack Taper DAILY@04 TOP 07/19/16 04:00 07/15/17 03:59 07/21/16 04:00 (Chlorhexidine 2% Cloth) 3 pack UNSCH PRN TOP 07/18/16 14:00 (Vitamin B1) 100 mg DAILY PO 07/18/16 15:00 07/21/16 09:19 (Folate) 1 mg DAILY PO 07/18/16 15:00 07/21/16 09:19 Multivitamins 1 tab 1 tab DAILY PO 07/18/16 15:00 07/21/16 09:19 (D5W-NS 1000 ml Inj) 1,000 ml @ 60 mls/hr [id number] IV 07/18/16 15:00 07/21/16 04:02 (Mycostatin Powder) 1 applic Q12HR TOPICAL 07/18/16 21:00 07/21/16 09:20 Terbutaline Sulfate 1 mg 1 mg UNSCH PRN SQ 07/18/16 23:30 (Neosynephrine Inj/D5W 500 ml Inj) 500 ml @ 0 mls/hr TITRATE IV 07/18/16 23:30 (Aspirin) 325 mg DAILY PO 07/20/16 16:15 07/21/16 09:19 (Cardizem) 30 mg QID PO 07/21/16 13:00 07/21/16 12:37 (Flomax) 0.4 mg DAILY PO 07/22/16 09:00 (Valium) 1 mg Q8H PO 07/21/16 14:00 07/21/16 12:37 (Pill Splitter) 1 ea UNSCH PRN OTHER 07/21/16 10:15 (Lena Grijalva) Physical Exam General Appearance: No Acute Distress, Comfortable (Lena Grijalva) Neck Neck Exam: Trachea Midline (Lena Grijalva) Pulmonary Resp Exam: Clear Bilaterally, Breath Sounds Equal (Lena Grijalva) Cardiology CV Exam: Irregular, Arrhythmia (Lena Grijalva) Gastrointestinal/Abdomen GI Exam: Soft, Non-Tender (Lena Grijalva) Extremeties Extremities Exam: Moderate Edema Extremeties Remarks 2+ pitting edema BLE up to thighs. (Lena Grijalva) Neurologic Neuro Exam: Alert, Awake Neuro Remarks Tremor in bilat hands L>R (Lena Grijalva) Psychiatric Psych Exam: Appropriate Responses (Lena Grijalva) Assessment/Plan Problem List: (1) Acute renal insufficiency Plan: Acute renal decline related to volume depletion from recent diarrhea and likely EtOH abuse---resolving. Would recommend slowing or stopping IVF as his intake has improved and he does have edema in LEs--will defer to CC Medications should be adjusted for the patient's renal decline. Avoid nephrotoxic agents including NSAIDs and iodinated contrast dyes. Avoid gadolinium when eGFR <30. Will sign off. Please recall if needed. (2) Hyponatremia Plan: Resolved Likely related to volume depletion as well as suspected malnutrition given his hypoalbuminemia. EtOH abuse can also cause hyponatremia related to paucity of osmoles required for adequate ADH secretion. (3) Atrial fibrillation, new onset Plan: Mgmt as per cardiology (4) Alcohol dependence, continuous drinking behavior Plan: Counselling regarding EtOH use. (5) Diarrhea Plan: w/u as per primary (6) Lung nodule Plan: Detected on CT abdomen. Will defer w/u to primary. (Lena Grijalva) Plan Physical examination, evaluation and assessment reviewed and discussed with my PA. I was fully involved in the evaluation and plan of care this patient. Doctor Rnony. (Cisco Jefferson MD) Lena Grijalva Jul 21, 2016 17:19 Cisco Jefferson MD Aug 22, 2016 11:32
[2016-07-22] VITALS (9 sets, daily range): BP systolic 92–147; BP diastolic 46–113; PULSE 59–122; RESP 18–24; TEMP 97.6–98.6; O2SAT 92–100
[2016-07-22] MEDS: HEPARIN SODIUM - SQ 10,000 UNITS/ML VIAL SQ SCH ×2 (03:13→16:13)
[2016-07-22] MEDS: CHLORHEXIDINE GLUCONATE 2 % 1 PACK (2 CLOTHS) TOP SCH (03:13)
[2016-07-22 04:38] LABS: HEMATOCRIT 31.2 % (39.0-51.0); MEAN CELL VOLUME 93.5 FL (80.0-100.0); MEAN CORPUSCULAR HEMOGLOBIN 30.2 PG (27.0-34.0); MEAN CORPUSCULAR HGB CONC 32.3 % (32.0-36.0); PLATELET COUNT 190 TH/MM3 (150-450); RED BLOOD COUNT 3.34 MIL/MM3 (4.50-5.90); RED CELL DISTRIBUTION WIDTH 22.7 % (11.6-17.2); REVIEW FLAG FINAL; WHITE BLOOD COUNT 4.9 TH/MM3 (4.0-11.0)
[2016-07-22 05:00] LABS: BICARBONATE 25.1 MEQ/L (21.0-32.0); POTASSIUM 3.8 MEQ/L (3.5-5.1)
[2016-07-22] MEDS: DIAZEPAM 2 MG TAB PO SCH ×3 (05:20→21:18)
[2016-07-22] MEDS: FOLIC ACID 1 MG TAB PO SCH (08:42)
[2016-07-22] MEDS: DILTIAZEM HCL 30 MG TAB PO SCH (08:42)
[2016-07-22] MEDS: THIAMINE HCL 100 MG TAB PO SCH (08:42)
[2016-07-22] MEDS: ASPIRIN 325 MG TAB PO SCH (08:42)
[2016-07-22] MEDS: PANTOPRAZOLE SODIUM 40 MG VIAL IV SCH (08:42)
[2016-07-22] MEDS: TAMSULOSIN HCL 0.4 MG CAP PO SCH (08:42)
[2016-07-22] MEDS: MULTIVITAMIN TAB PO SCH (08:42)
[2016-07-22] MEDS: NYSTATIN 100,000 U/GM PWD 15 GM BTL TOPICAL SCH ×2 (08:43→21:00)
--- NOTE | 2016-07-22 09:02 | PD.CARD.PN ---
Subjective Subjective Remarks No chest pain, no shortness of breath, no palpitations Objective Medications Current Medications Medications (Trade) Dose Ordered Sig/Donny Route Start Time Stop Time Status Last Admin (NS Flush) 2 ml UNSCH PRN IVF 07/18/16 12:15 (Protonix Inj) 40 mg DAILY IV 07/18/16 15:00 07/22/16 08:42 (Heparin Inj) 5,000 units Q12H SQ 07/18/16 15:00 07/22/16 03:13 Miscellaneous Information 1 Q361D XX 07/18/16 14:00 (Chlorhexidine 2% Cloth) 3 pack Taper DAILY@04 TOP 07/19/16 04:00 07/15/17 03:59 07/22/16 03:13 (Chlorhexidine 2% Cloth) 3 pack UNSCH PRN TOP 07/18/16 14:00 (Vitamin B1) 100 mg DAILY PO 07/18/16 15:00 07/22/16 08:42 (Folate) 1 mg DAILY PO 07/18/16 15:00 07/22/16 08:42 Multivitamins 1 tab 1 tab DAILY PO 07/18/16 15:00 07/22/16 08:42 (D5W-NS 1000 ml Inj) 1,000 ml @ 60 mls/hr [id number] IV 07/18/16 15:00 07/21/16 19:42 (Mycostatin Powder) 1 applic Q12HR TOPICAL 07/18/16 21:00 07/22/16 08:43 Terbutaline Sulfate 1 mg 1 mg UNSCH PRN SQ 07/18/16 23:30 (Neosynephrine Inj/D5W 500 ml Inj) 500 ml @ 0 mls/hr TITRATE IV 07/18/16 23:30 (Aspirin) 325 mg DAILY PO 07/20/16 16:15 07/22/16 08:42 (Cardizem) 30 mg QID PO 07/21/16 13:00 07/22/16 08:42 (Flomax) 0.4 mg DAILY PO 07/22/16 09:00 07/22/16 08:42 (Valium) 1 mg Q8H PO 07/21/16 14:00 07/22/16 05:20 (Pill Splitter) 1 ea UNSCH PRN OTHER 07/21/16 10:15 Vital Signs / I&O Vital Signs Date Time Temp Pulse Resp B/P Pulse Ox O2 Delivery O2 Flow Rate FiO2 07/22/16 04:00 115 07/22/16 04:00 98.6 122 21 147/113 96 07/22/16 00:00 98.2 66 24 110/67 95 07/22/16 00:00 66 07/21/16 20:00 122 07/21/16 20:00 98.6 122 21 147/113 96 07/21/16 18:00 85 07/21/16 16:00 99.0 95 19 129/57 97 07/21/16 16:00 85 07/21/16 14:00 100 07/21/16 12:00 98.2 111 18 138/65 94 07/21/16 12:00 84 07/21/16 10:00 88 I/O 07/21/16 07/21/16 07/21/16 07/22/16 07/22/16 07/22/16 07:00 15:00 23:00 07:00 15:00 23:00 Intake Total 537 ml 662 ml 1120 ml 465 ml Output Total 250 ml 310 ml 500 ml 250 ml Balance 287 ml 352 ml 620 ml 215 ml Intake Oral 240 ml 100 ml IV Total 537 ml 662 ml 880 ml 365 ml Output Urine Total 250 ml 310 ml 500 ml 250 ml # Bowel Movements 0 1 0 0 Physical Exam GENERAL: NAD SKIN: Warm and dry. HEAD: Atraumatic. Normocephalic. EYES: Pupils equal and round. No scleral icterus. No injection or drainage. ENT: No nasal bleeding or discharge. Mucous membranes pink and moist. NECK: Trachea midline. No JVD. CARDIOVASCULAR: Irregularly irregular RESPIRATORY: No accessory muscle use. Decreased breath sounds bilaterally. GASTROINTESTINAL: Abdomen soft, non-tender, nondistended. Hepatic and splenic margins not palpable. MUSCULOSKELETAL: Extremities without clubbing, cyanosis, or edema. No obvious deformities. NEUROLOGICAL: Awake and alert. No obvious cranial nerve deficits. Motor grossly within normal limits. Five out of 5 muscle strength in the arms and legs. Normal speech. PSYCHIATRIC: Appropriate mood and affect; insight and judgment normal. Laboratory Laboratory Tests Test 07/22/16 03:20 White Blood Count 4.9 TH/MM3 Red Blood Count 3.34 MIL/MM3 Hemoglobin 10.1 GM/DL Hematocrit 31.2 % Mean Corpuscular Volume 93.5 FL Mean Corpuscular Hemoglobin 30.2 PG Mean Corpuscular Hemoglobin 32.3 % Concent Red Cell Distribution Width 22.7 % Platelet Count 190 TH/MM3 Mean Platelet Volume 9.5 FL Sodium Level 137 MEQ/L Potassium Level 3.8 MEQ/L Chloride Level 104 MEQ/L Carbon Dioxide Level 25.1 MEQ/L Anion Gap 8 MEQ/L Blood Urea Nitrogen 13 MG/DL Creatinine 1.15 MG/DL Estimat Glomerular Filtration 61 ML/MIN Rate Random Glucose 103 MG/DL Calcium Level 7.9 MG/DL Assessment and Plan Problem List: (1) Diarrhea (2) Atrial fibrillation, new onset (3) Alcohol dependence, continuous drinking behavior (4) Acute renal insufficiency (5) Urinary tract infection (6) Gait instability Assessment and Plan 1) Heart rate somewhat controlled, will place him on Cardizem 60mg q 6hrs 2) Not an anticoagulation candidate due to falls, and ETOH history, will place on ASA 3) 2D echo pending 4) Afib most likely due to dehydration from diarrhea Problem Qualifiers (1) Urinary tract infection: Qualified Code: N30.01 - Acute cystitis with hematuria Jorge Luis Stafford DO Jul 22, 2016 09:02
[2016-07-22] MEDS ORDERED: DILTIAZEM HCL 60 MG TAB PO SCH (09:15)
[2016-07-22] MEDS ORDERED: DILTIAZEM HCL 30 MG TAB PO ONE (09:15)
--- NOTE | 2016-07-22 13:52 | HHI.PR ---
Subjective Remarks Patient reports that he is feeling better overall except for generalized weakness. Heart rate much better controlled since Cardizem was increased today by cardiology. Objective Vitals Vital Signs Date Time Temp Pulse Resp B/P Pulse Ox O2 Delivery O2 Flow Rate FiO2 07/22/16 04:00 115 07/22/16 04:00 98.6 122 21 147/113 96 07/22/16 00:00 98.2 66 24 110/67 95 07/22/16 00:00 66 07/21/16 20:00 122 07/21/16 20:00 98.6 122 21 147/113 96 07/21/16 18:00 85 07/21/16 16:00 99.0 95 19 129/57 97 07/21/16 16:00 85 07/21/16 14:00 100 I/O 07/21/16 07/21/16 07/21/16 07/22/16 07/22/16 07/22/16 07:00 15:00 23:00 07:00 15:00 23:00 Intake Total 537 ml 662 ml 1120 ml 465 ml Output Total 250 ml 310 ml 500 ml 250 ml Balance 287 ml 352 ml 620 ml 215 ml Intake Oral 240 ml 100 ml IV Total 537 ml 662 ml 880 ml 365 ml Output Urine Total 250 ml 310 ml 500 ml 250 ml # Bowel Movements 0 1 0 0 Result Diagram: 07/22/1631907/22/16319 Objective Remarks CONSTITUTIONAL/GENERAL: Obese male in no acute distress. EYES: Pupils equal and round and reactive. No injection or drainage. ENT: Hearing grossly normal. Nose without drainage. NECK: Trachea midline. Neck is supple, non-tender. CARDIOVASCULAR: Normal rate. Irregular rhythm. No appreciable murmurs. Peripheral pulses 2+ and symmetric. RESPIRATORY/CHEST: Symmetric, unlabored respirations. Breath sounds equal and clear to auscultation bilaterally. No wheezes, crackles, rales, or rhonchi. GASTROINTESTINAL: Abdomen soft, obese, non-tender. Bowel sounds present. MUSCULOSKELETAL: Extremities without clubbing, cyanosis, or edema. Left shoulder joint with limited ROM for abduction due to pain. Left shoulder tender to palpation. NEUROLOGICAL: Awake and alert. Move all extremities spontaneously. No focal deficits. PSYCHIATRIC: No obvious mood problems. No apparent hallucinations or other psychotic thought process. Procedures 07/18/15: IJ CVL insertion Date of Insertion: Jul 18, 2016 Date of Insertion: Jul 18, 2016 Line: Central Venous Catheter Side: Left Location: Jugular A/P Assessment and Plan 85-year-old male initially admitted for multiple falls, ataxic gait, hypotensive on admission, new onset A. fib with RVR and a persistent bilateral upper extremity tremors, alcohol abuse. Paroxysmal A. fib with RVR: No known history of A. fib. - Cardiology following. Cardizem increased today to 60 mg every 6 hours. Rate is now controlled. Patient is on aspirin. 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 May need outpatient follow-up for further workup to rule out Parkinson's disease. - Sinemet has been discontinued. Patient reports that it is improving. Alcohol abuse/withdrawal: May be contributing to the tremor above. Patient drinks a couple bottles of wine daily. - Currently getting Valium 1 mg every 8 hours. Will decrease to when necessary. Hypotension on admission, with history of chronic hypertension: - Lisinopril on hold. May need to resume once blood pressure start coming up. Acute renal failure: Resolved. Appreciate nephrology following. Thought to be due to volume depletion. Patient is a taking enough orally. Discontinue IV fluid UTI, patient was on Cipro outpatient. Urine culture here is negative. He received 3 days of Rocephin. Antibiotics discontinued. BPH: Resume Flomax. Left shoulder pain after fall: Patient having problem with abduction. X-ray does not show any fractures. He does have osteoarthritis and previous rotator cuff repair. Continue with pain control. Lung nodule: Discovered on chest x-ray. Will obtain follow-up CT. GI prophylaxis: Stool softener PRN constipation. DVT PPx: Heparin Discharge Planning OK to transfer to floor. Pratik Caal MD Jul 22, 2016 13:52
[2016-07-22] MEDS: DILTIAZEM HCL 60 MG TAB PO SCH ×3 (16:13→21:17)
--- NOTE | 2016-07-22 19:35 | RADRPT ---
EXAM DATE/TIME: 07/22/2016 17:55 [facility] COMPARISON: CT ABDOMEN & PELVIS W/O CONTRAST, July 18, 2016, 14:48. CHEST SINGLE AP, July 18, 2016, 23:24. INDICATIONS : Lung nodule. RADIATION DOSE: 9.59 CTDIvol (mGy) MEDICAL HISTORY : Congestive hearrt failure. SURGICAL HISTORY : None. ENCOUNTER: Initial ACUITY: 1 day PAIN SCALE: 0/10 LOCATION: chest TECHNIQUE: Volumetric scanning of the chest was performed. Using automated exposure control and adjustment of t he mA and/or kV according to patient size, radiation dose was kept as low as reasonably achievable to obtain optimal diagnostic quality images. FINDINGS: LUNGS: A 14 mm nodular density in the medial right upper lobe is again noted. There is bibasilar atelectasis . PLEURAE: Small bilateral effusions MEDIASTINUM: No evidence of mediastinal mass or adenopathy. Atherosclerotic calcifications come including within t he coronaries. AXILLAE: Within normal limits. No lymphadenopathy. MUSCULOSKELETAL: Within normal limits for patient age. MISCELLANEOUS: Diffuse attenuation the liver may be fatty infiltration. Gallstones. CONCLUSION: 14 mm right lung nodule. Simon Cates MD on July 22, 2016 at 19:29 Board Certified Radiologist. This report was verified electronically.
[2016-07-23] VITALS (21 sets, daily range): BP systolic 103–137; BP diastolic 54–79; PULSE 63–115; RESP 18–22; TEMP 97.5–98.2; O2SAT 97–100
[2016-07-23] MEDS: CHLORHEXIDINE GLUCONATE 2 % 1 PACK (2 CLOTHS) TOP SCH (00:58)
[2016-07-23] MEDS: HEPARIN SODIUM - SQ 10,000 UNITS/ML VIAL SQ SCH ×2 (02:45→14:52)
[2016-07-23] MEDS: DIAZEPAM 2 MG TAB PO SCH ×3 (06:26→20:21)
--- NOTE | 2016-07-23 09:13 | PD.CARD.PN ---
Subjective Subjective Remarks Feels well, no CP/SOB/palpitations Objective Medications Current Medications Medications (Trade) Dose Ordered Sig/Donny Route Start Time Stop Time Status Last Admin (NS Flush) 2 ml UNSCH PRN IVF 07/18/16 12:15 (Protonix Inj) 40 mg DAILY IV 07/18/16 15:00 07/22/16 08:42 (Heparin Inj) 5,000 units Q12H SQ 07/18/16 15:00 07/23/16 02:45 Miscellaneous Information 1 Q361D XX 07/18/16 14:00 (Chlorhexidine 2% Cloth) 3 pack Taper DAILY@04 TOP 07/19/16 04:00 07/15/17 03:59 07/22/16 03:13 (Chlorhexidine 2% Cloth) 3 pack UNSCH PRN TOP 07/18/16 14:00 (Vitamin B1) 100 mg DAILY PO 07/18/16 15:00 07/22/16 08:42 (Folate) 1 mg DAILY PO 07/18/16 15:00 07/22/16 08:42 (Theragran) 1 tab DAILY PO 07/18/16 15:00 07/22/16 08:42 (Mycostatin Powder) 1 applic Q12HR TOPICAL 07/18/16 21:00 07/22/16 21:00 Terbutaline Sulfate 1 mg 1 mg UNSCH PRN SQ 07/18/16 23:30 (Neosynephrine Inj/D5W 500 ml Inj) 500 ml @ 0 mls/hr TITRATE IV 07/18/16 23:30 (Aspirin) 325 mg DAILY PO 07/20/16 16:15 07/22/16 08:42 (Flomax) 0.4 mg DAILY PO 07/22/16 09:00 07/22/16 08:42 (Valium) 1 mg Q8H PO 07/21/16 14:00 07/23/16 06:26 (Pill Splitter) 1 ea UNSCH PRN OTHER 07/21/16 10:15 (Cardizem) 60 mg QID PO 07/22/16 13:00 07/22/16 21:17 Vital Signs / I&O Vital Signs Date Time Temp Pulse Resp B/P Pulse Ox O2 Delivery O2 Flow Rate FiO2 07/23/16 07:00 80 07/23/16 04:03 98.2 67 18 137/67 100 07/23/16 03:00 76 07/23/16 00:46 98.2 68 18 114/60 100 07/22/16 23:00 77 07/22/16 20:05 97.6 66 18 130/53 100 07/22/16 19:00 82 07/22/16 18:32 97.6 76 18 92/46 96 07/22/16 16:00 72 07/22/16 16:00 98.1 59 18 101/51 97 07/22/16 12:00 98.3 72 21 111/57 95 07/22/16 12:00 81 I/O 07/22/16 07/22/16 07/22/16 07/23/16 07/23/16 07/23/16 07:00 15:00 23:00 07:00 15:00 23:00 Intake Total 465 ml 786 ml Output Total 250 ml Balance 215 ml 786 ml Intake Oral 100 ml 250 ml IV Total 365 ml 536 ml Output Urine Total 250 ml # Voids 4 # Bowel Movements 0 Physical Exam GENERAL: NAD SKIN: Warm and dry. HEAD: Atraumatic. Normocephalic. EYES: Pupils equal and round. No scleral icterus. No injection or drainage. ENT: No nasal bleeding or discharge. Mucous membranes pink and moist. NECK: Trachea midline. No JVD. CARDIOVASCULAR: Irregularly irregular RESPIRATORY: No accessory muscle use. Decreased breath sounds bilaterally. GASTROINTESTINAL: Abdomen soft, non-tender, nondistended. Hepatic and splenic margins not palpable. MUSCULOSKELETAL: Extremities without clubbing, cyanosis, or edema. No obvious deformities. NEUROLOGICAL: Awake and alert. No obvious cranial nerve deficits. Motor grossly within normal limits. Five out of 5 muscle strength in the arms and legs. Normal speech. PSYCHIATRIC: Appropriate mood and affect; insight and judgment normal. Assessment and Plan Problem List: (1) Diarrhea (2) Atrial fibrillation, new onset (3) Alcohol dependence, continuous drinking behavior (4) Acute renal insufficiency (5) Urinary tract infection (6) Gait instability Assessment and Plan 1) Heart rate controlled, continue Cardizem 60mg q 6hrs 2) Not an anticoagulation candidate due to falls, and ETOH history, will place on ASA 3) 2D echo pending 4) Afib most likely due to dehydration from diarrhea Problem Qualifiers (1) Urinary tract infection: Qualified Code: N30.01 - Acute cystitis with hematuria Jorge Luis Stafford DO Jul 23, 2016 09:13
[2016-07-23] MEDS: DILTIAZEM HCL 60 MG TAB PO SCH ×4 (09:49→20:21)
[2016-07-23] MEDS: PANTOPRAZOLE SODIUM 40 MG VIAL IV SCH (09:49)
[2016-07-23] MEDS: THIAMINE HCL 100 MG TAB PO SCH (09:49)
[2016-07-23] MEDS: FOLIC ACID 1 MG TAB PO SCH (09:49)
[2016-07-23] MEDS: ASPIRIN 325 MG TAB PO SCH (09:49)
[2016-07-23] MEDS: TAMSULOSIN HCL 0.4 MG CAP PO SCH (09:56)
[2016-07-23] MEDS: MULTIVITAMIN TAB PO SCH (09:56)
[2016-07-23] MEDS: NYSTATIN 100,000 U/GM PWD 15 GM BTL TOPICAL SCH ×2 (10:40→20:21)
--- NOTE | 2016-07-23 12:03 | HHI.PR ---
Subjective Remarks Patient reports that he is feeling much better. On room air. Generalized weakness. Agreeable to rehab. Objective Vitals Vital Signs Date Time Temp Pulse Resp B/P Pulse Ox O2 Delivery O2 Flow Rate FiO2 07/23/16 12:00 90 07/23/16 11:00 100 07/23/16 11:00 97.8 98 18 129/65 98 07/23/16 10:00 115 07/23/16 09:00 105 07/23/16 08:55 97.5 87 18 117/79 98 07/23/16 08:00 93 07/23/16 07:00 80 07/23/16 04:03 98.2 67 18 137/67 100 07/23/16 03:00 76 07/23/16 00:46 98.2 68 18 114/60 100 07/22/16 23:00 77 07/22/16 20:05 97.6 66 18 130/53 100 07/22/16 19:00 82 07/22/16 18:32 97.6 76 18 92/46 96 07/22/16 16:00 72 07/22/16 16:00 98.1 59 18 101/51 97 I/O 07/22/16 07/22/16 07/22/16 07/23/16 07/23/16 07/23/16 07:00 15:00 23:00 07:00 15:00 23:00 Intake Total 465 ml 786 ml Output Total 250 ml Balance 215 ml 786 ml Intake Oral 100 ml 250 ml IV Total 365 ml 536 ml Output Urine Total 250 ml # Voids 4 # Bowel Movements 0 Result Diagram: 07/22/16 0320 07/22/16 0320 Objective Remarks CONSTITUTIONAL/GENERAL: Obese male in no acute distress. EYES: Pupils equal and round and reactive. No injection or drainage. ENT: Hearing grossly normal. Nose without drainage. NECK: Trachea midline. Neck is supple, non-tender. CARDIOVASCULAR: Normal rate. Irregular rhythm. No appreciable murmurs. Peripheral pulses 2+ and symmetric. RESPIRATORY/CHEST: Symmetric, unlabored respirations. Breath sounds equal and clear to auscultation bilaterally. No wheezes, crackles, rales, or rhonchi. GASTROINTESTINAL: Abdomen soft, obese, non-tender. Bowel sounds present. MUSCULOSKELETAL: Extremities without clubbing, cyanosis, or edema. Left shoulder joint with limited ROM for abduction due to pain. Left shoulder tender to palpation. NEUROLOGICAL: Awake and alert. Move all extremities spontaneously. No focal deficits. PSYCHIATRIC: No obvious mood problems. No apparent hallucinations or other psychotic thought process. Procedures 07/18/15: IJ CVL insertion Date of Insertion: Jul 18, 2016 Date of Insertion: Jul 18, 2016 Line: Central Venous Catheter Side: Left Location: Jugular A/P Assessment and Plan 85-year-old male initially admitted for multiple falls, ataxic gait, hypotensive on admission, new onset A. fib with RVR and a persistent bilateral upper extremity tremors, alcohol abuse. Paroxysmal A. fib with RVR: No known history of A. fib. - Cardiology following. Rate controlled with Cardizem 60 mg every 6 hours. Patient is on aspirin. 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 May need outpatient follow-up for further workup to rule out Parkinson's disease. - Sinemet has been discontinued. Patient reports that it is improving. Alcohol abuse/withdrawal: May be contributing to the tremor above. Patient drinks a couple bottles of wine daily. - Currently getting Valium 1 mg every 8 hours. Will change to PRN Hypotension on admission, with history of chronic hypertension: - Lisinopril on hold. May need to resume once blood pressure start coming up. Acute renal failure: Resolved. Appreciate nephrology assistance. Thought to be due to volume depletion. Patient is taking enough orally. IV fluid UTI, patient was on Cipro outpatient. Urine culture here is negative. He received 3 days of Rocephin. Antibiotics discontinued. IV fluid discontinued. BPH: Resume Flomax. Left shoulder pain after fall: Patient having problem with abduction. X-ray does not show any fractures. He does have osteoarthritis and previous rotator cuff repair. Continue with pain control. Lung nodule: Discovered on chest x-ray. Confirmed by CT. Will need outpatient follow up. Patient was counseled. GI prophylaxis: Stool softener PRN constipation. DVT PPx: Heparin Discharge Planning Plan to DC to rehab tomorrow. Pratik Caal MD Jul 23, 2016 12:03
[2016-07-24] VITALS (25 sets, daily range): BP systolic 101–144; BP diastolic 44–80; PULSE 62–118; RESP 16–20; TEMP 98–98.6; O2SAT 96–98
[2016-07-24] MEDS: HEPARIN SODIUM - SQ 10,000 UNITS/ML VIAL SQ SCH ×2 (03:33→15:37)
[2016-07-24] MEDS: CHLORHEXIDINE GLUCONATE 2 % 1 PACK (2 CLOTHS) TOP SCH (03:33)
[2016-07-24] MEDS: DIAZEPAM 2 MG TAB PO SCH ×3 (06:00→20:36)
[2016-07-24] MEDS: DILTIAZEM HCL 60 MG TAB PO SCH ×4 (09:00→20:36)
--- NOTE | 2016-07-24 09:15 | HHI.PR ---
Review/Management Diagnosis/Plan: (1) Kinetic tremor Plan: does not appear to be a pd tremor suspect related to renal failure, electrolyte changes and etoh cessation he may be developing an essential tremor; further evaluation for pd would be best done outpatient once all of his acute medical problems have resolved rec neuro stable will try low dose primidone for tremor and increase q4 weeks depending on clinical response/side effects rehab planning (2) Alcohol dependence, continuous drinking behavior Plan: consider AA support group (3) Asterixis (4) Acute renal failure Plan: followed by renal Subjective Subjective Comments No acute events reported No headache No chest pain No dyspnea Active Medications Current Medications Medications (Trade) Dose Ordered Sig/Donny Route Start Time Stop Time Status Last Admin (NS Flush) 2 ml UNSCH PRN IVF 07/18/16 12:15 (Protonix Inj) 40 mg DAILY IV 07/18/16 15:00 07/23/16 09:49 (Heparin Inj) 5,000 units Q12H SQ 07/18/16 15:00 07/24/16 03:33 Miscellaneous Information 1 Q361D XX 07/18/16 14:00 (Chlorhexidine 2% Cloth) Taper DAILY@04 TOP 07/19/16 04:00 07/15/17 03:59 07/22/16 03:13 (Chlorhexidine 2% Cloth) 3 pack UNSCH PRN TOP 07/18/16 14:00 (Vitamin B1) 100 mg DAILY PO 07/18/16 15:00 07/23/16 09:49 (Folate) 1 mg DAILY PO 07/18/16 15:00 07/23/16 09:49 (Theragran) 1 tab DAILY PO 07/18/16 15:00 07/23/16 09:56 (Mycostatin Powder) 1 applic Q12HR TOPICAL 07/18/16 21:00 07/23/16 20:21 Terbutaline Sulfate 1 mg 1 mg UNSCH PRN SQ 07/18/16 23:30 (Neosynephrine Inj/D5W 500 ml Inj) 500 ml @ 0 mls/hr TITRATE IV 07/18/16 23:30 (Aspirin) 325 mg DAILY PO 07/20/16 16:15 07/23/16 09:49 (Flomax) 0.4 mg DAILY PO 07/22/16 09:00 07/23/16 09:56 (Valium) 1 mg Q8H PO 07/21/16 14:00 07/23/16 20:21 (Pill Splitter) 1 ea UNSCH PRN OTHER 07/21/16 10:15 (Cardizem) 60 mg QID PO 07/22/16 13:00 07/23/16 20:21 Allergies Allergies Coded Allergies No Known Allergies (Unverified07/18/16) Review of Systems All other ROS: ROS reviewed as documented in chart Exam I&O / VS 07/23/16 07/23/16 07/24/16 15:00 23:00 07:00 Intake Total 720 ml 242 ml Balance 720 ml 242 ml Intake Oral 720 ml 240 ml IV Total 2 ml # Voids 3 3 # Bowel Movements 1 1 Vital Signs Date Time Temp Pulse Resp B/P Pulse Ox O2 Delivery O2 Flow Rate FiO2 07/24/16 08:00 110 07/24/16 07:00 77 07/24/16 07:00 98.6 65 16 144/70 96 07/24/16 07:00 96 Room Air 07/24/16 06:00 84 07/24/16 05:00 85 07/24/16 04:04 90 07/24/16 04:00 Room Air 07/24/16 04:00 98.3 90 20 105/56 97 07/24/16 03:00 87 07/24/16 02:00 81 07/24/16 01:00 84 07/24/16 00:00 98.2 76 20 137/44 96 07/24/16 00:00 76 07/24/16 00:00 Room Air 07/23/16 23:00 70 07/23/16 22:00 72 07/23/16 21:00 75 07/23/16 20:00 Room Air 07/23/16 20:00 67 07/23/16 20:00 98.0 67 22 103/54 97 07/23/16 18:00 82 07/23/16 17:00 77 07/23/16 16:20 63 07/23/16 15:34 97.8 66 18 116/54 98 07/23/16 15:00 80 07/23/16 14:00 69 07/23/16 13:00 86 07/23/16 12:00 90 07/23/16 11:00 100 07/23/16 11:00 97.8 98 18 129/65 98 07/23/16 10:00 115 General: Alert and Oriented, No acute distress Eye: EOMI Respiratory: Non-labored respirations Neurologic: Alert, Oriented, CN II-XII intact Psychiatric: Cooperative, Appropriate mood & affect Exam Comments alert, follows, ox 3. ou 3-2 mm, eomi, face sym mild left hand resting and bilateral postural/action tremor, minimal rigidity in arms, no asterixis today, redd to gravity, msr tr, no clonus, planter flexor response, gait not assessed 2/ 2 fall risk Problem Qualifiers (1) Acute renal failure: Qualified Code: N17.9 - Acute renal failure, unspecified acute renal failure type Sean Kim MD Jul 24, 2016 09:15 Sean Kim MD Jul 24, 2016 09:15
[2016-07-24] MEDS: ASPIRIN 325 MG TAB PO SCH (09:26)
[2016-07-24] MEDS: PANTOPRAZOLE SODIUM 40 MG VIAL IV SCH (09:26)
[2016-07-24] MEDS: THIAMINE HCL 100 MG TAB PO SCH (09:26)
[2016-07-24] MEDS: FOLIC ACID 1 MG TAB PO SCH (09:26)
[2016-07-24] MEDS: NYSTATIN 100,000 U/GM PWD 15 GM BTL TOPICAL SCH ×2 (09:27→20:37)
[2016-07-24] MEDS: TAMSULOSIN HCL 0.4 MG CAP PO SCH (09:27)
[2016-07-24] MEDS: MULTIVITAMIN TAB PO SCH (09:27)
[2016-07-24] MEDS ORDERED: DILT60TA33 PO (10:09)
[2016-07-24] MEDS ORDERED: FOLI1TAB4 PO (10:09)
[2016-07-24] MEDS ORDERED: THERTAB15 PO (10:09)
[2016-07-24] MEDS ORDERED: PRIM50 PO (10:09)
[2016-07-24] MEDS ORDERED: VITA100T2 PO (10:09)
--- NOTE | 2016-07-24 10:11 | HHI.DS ---
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 ED via EMS from home with a history of non-bloody diarrhea for the past 4 days. He denies any nausea, vomiting or abdominal pain. In addition, the patient denies any cough or any constitutional symptoms. On arrival to the ED he initially had a blood pressure of 142/81, however, he was tachycardic with a heart rate in the 120s, and in the ER became hypotensive with a blood pressure in the 80s. The patient received one liter of normal saline by EMS en route and is about to receive a second liter of normal saline. His laboratory data is significant for hyponatremia with a sodium level of 122, acute renal failure with a creatinine of 2.74 with potassium 4.5, and mild elevation lactic acid at 3.3. Other significant labs showed elevated LFTs with AST 115, ALT 110 and lipase of 422. His urinalysis was positive for leukocyte esterase with 23 wbc's and occasional bacteria. He reports generalized weakness. The patient was on Cipro at home for the UTI. EKG showed new-onset atrial fibrillation with a rate of 114 beats per minute. When seen in the ER the patient is on room air oxygen. He looks comfortable, however. The patient is hypotensive with a blood pressure of 93/51 and tachycardic with heart rate of 110. The patient is an active drinker where he drinks two bottles of wine a week. CBC/BMP: 07/22/16 0320 07/22/16 0320 Significant Findings Laboratory Tests Test 07/22/16 03:20 Red Blood Count 3.34 MIL/MM3 (4.50-5.90) Hemoglobin 10.1 GM/DL (13.0-17.0) Hematocrit 31.2 % (39.0-51.0) Red Cell Distribution Width 22.7 % (11.6-17.2) Estimat Glomerular Filtration 61 ML/MIN (>89) Rate Calcium Level 7.9 MG/DL (8.5-10.1) Imaging Last Impressions Chest CT 07/22/16 0000 Signed Impressions: Service Date/Time: Friday, July 22, 2016 17:55 - CONCLUSION: 14 mm right lung nodule. Simon Cates MD Shoulder X-Ray 07/21/16 0000 Signed Impressions: Service Date/Time: Thursday, July 21, 2016 09:49 - CONCLUSION: 1. No fracture or dislocation. Moderate osteoarthritis. Surgical anchors from previous rotator cuff repair. Juan Carlos Ivan MD Renal Ultrasound 07/18/16 0000 Signed Impressions: Service Date/Time: Monday, July 18, 2016 21:19 - CONCLUSION: 1. Simple cysts in the left kidney. Otherwise, unremarkable exam. Gerson Zhang Jr., MD Chest X-Ray 07/18/16 0000 Signed Impressions: Service Date/Time: Monday, July 18, 2016 23:24 - CONCLUSION: 1. Left- sided central line without pneumothorax. Gerson Zhang Jr., MD Abdomen/Pelvis CT 07/18/16 0000 Signed Impressions: Service Date/Time: Monday, July 18, 2016 14:48 - CONCLUSION: 1. 12 mm x 8 mm nodule right middle lobe. Further evaluation with chest CT recommended. 2. Diffuse fatty liver. 3. Numerous gallstones lodged in gallbladder neck. Gallbladder not significantly distended. Probable gallbladder sludge present. 4. Multiple left renal cysts. Juan Carlos Ivan MD PE at Discharge CONSTITUTIONAL/GENERAL: Obese male in no acute distress. EYES: Pupils equal and round and reactive. No injection or drainage. ENT: Hearing grossly normal. Nose without drainage. NECK: Trachea midline. Neck is supple, non-tender. CARDIOVASCULAR: Normal rate. Irregular rhythm. No appreciable murmurs. Peripheral pulses 2+ and symmetric. RESPIRATORY/CHEST: Symmetric, unlabored respirations. Breath sounds equal and clear to auscultation bilaterally. No wheezes, crackles, rales, or rhonchi. GASTROINTESTINAL: Abdomen soft, obese, non-tender. Bowel sounds present. MUSCULOSKELETAL: Extremities without clubbing, cyanosis, or edema. Left shoulder joint with limited ROM for abduction due to pain. Left shoulder tender to palpation. NEUROLOGICAL: Awake and alert. Move all extremities spontaneously. No focal deficits. PSYCHIATRIC: No obvious mood problems. No apparent hallucinations or other psychotic thought process. Pt update on day of discharge Patient reports that he is feeling okay except for generalized weakness. He is looking for to go into rehabilitation. Hospital Course 85-year-old male initially admitted for multiple falls, ataxic gait, hypotensive on admission, new onset A. fib with RVR and a persistent bilateral upper extremity tremors, alcohol abuse. Evaluation and treatment course detailed below: Paroxysmal A. fib with RVR: No known history of A. fib. -Patient was followed by cardiology. Rate controlled with Cardizem 60 mg every 6 hours. Patient is on aspirin. 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 May need outpatient follow-up for further workup to rule out Parkinson's disease. - Sinemet has been discontinued. Patient reports that it is improving. Patient was started on primidone per neurology. He will follow up outpatient with neurology. Alcohol abuse/withdrawal: May be contributing to the tremor above. Patient drinks a couple bottles of wine daily. The patient was treated with scheduled Valium which was eventually switched to as needed until he no longer required it. The patient was strongly counseled on complete cessation of alcohol use. Hypotension on admission, with history of chronic hypertension: - Lisinopril on hold and discontinued. Patient has been normotensive. Acute renal failure: Resolved. Patient was followed by nephrology this was thought to be due to volume depletion. It completely resolved with hydration. UTI, patient was on Cipro outpatient. Urine culture here is negative. He received 3 days of Rocephin. Antibiotics discontinued. IV fluid discontinued. BPH: Resume Flomax. Left shoulder pain after fall: Patient having problem with abduction. X-ray does not show any fractures. He does have osteoarthritis and previous rotator cuff repair. Continue with pain control. Lung nodule: Discovered on chest x-ray. Confirmed by CT. Will need outpatient follow up. Patient was counseled. Pt Condition on Discharge: Stable Discharge Disposition: Discharge to SNF Discharge Time: > 30 minutes Discharge Instructions DIET: Follow Instructions for: Heart Healthy Diet Activities you can perform: See Additionl Instruction Other Activity Instructions: Per PT instructions. Use assistance. Follow up Referrals: Neurology - 4 Weeks with Sean Kim MD PCP Follow-up New Medications: Lorazepam (Ativan) 2 Mg Tab 2 MG PO Q6H PRN ANXIETY AND/OR AGITATION #15 Ref 0 TAB Diltiazem (Cardizem) 60 Mg Tab 60 MG PO QID Days 30 TAB Folic Acid (Folate) 1 Mg Tab 1 MG PO DAILY #30 TAB Multiple Vitamin (Thera/Beta-Carotene) 1 Tab Tab 1 TAB PO DAILY #30 TAB Primidone (Mysoline) 50 Mg Tab 25 MG PO HS #30 TAB Thiamine (Vitamin B-1) 100 Mg Tab 100 MG PO DAILY #30 TAB Continued Medications: Aspirin (Aspirin) 325 Mg Tab 325 MG PO DAILY #30 Ref 0 TAB Omeprazole (Omeprazole) 20 Mg Tab 20 MG PO DAILY #30 Ref 0 TAB Tamsulosin (Tamsulosin) 0.4 Mg Cap 0.4 MG PO DAILY Manage Prostate Problems #30 Ref 0 CAP Discontinued Medications: Ciprofloxacin (Cipro) 500 Mg Tab 500 MG PO BID Infection #14 Ref 0 TAB Furosemide (Lasix) 20 Mg Tab 20 MG PO BID #60 Ref 0 TAB Lisinopril (Lisinopril) 10 Mg Tab 10 MG PO DAILY #30 Ref 0 TAB Pratik Caal MD Jul 24, 2016 10:11
[2016-07-24] MEDS ORDERED: LORA-475 PO (10:12)
--- NOTE | 2016-07-24 16:35 | PD.CARD.PN ---
Subjective Subjective Remarks Patient seen earlier today, no chest pain/SOB/palpitations Objective Medications Current Medications Medications (Trade) Dose Ordered Sig/Donny Route Start Time Stop Time Status Last Admin (NS Flush) 2 ml UNSCH PRN IVF 07/18/16 12:15 07/24/16 09:27 (Protonix Inj) 40 mg DAILY IV 07/18/16 15:00 07/24/16 09:26 (Heparin Inj) 5,000 units Q12H SQ 07/18/16 15:00 07/24/16 15:37 Miscellaneous Information 1 Q361D XX 07/18/16 14:00 (Chlorhexidine 2% Cloth) Taper DAILY@04 TOP 07/19/16 04:00 07/15/17 03:59 07/22/16 03:13 (Chlorhexidine 2% Cloth) 3 pack UNSCH PRN TOP 07/18/16 14:00 (Vitamin B1) 100 mg DAILY PO 07/18/16 15:00 07/24/16 09:26 (Folate) 1 mg DAILY PO 07/18/16 15:00 07/24/16 09:26 (Theragran) 1 tab DAILY PO 07/18/16 15:00 07/24/16 09:27 (Mycostatin Powder) 1 applic Q12HR TOPICAL 07/18/16 21:00 07/24/16 09:27 Terbutaline Sulfate 1 mg 1 mg UNSCH PRN SQ 07/18/16 23:30 (Neosynephrine Inj/D5W 500 ml Inj) 500 ml @ 0 mls/hr TITRATE IV 07/18/16 23:30 (Aspirin) 325 mg DAILY PO 07/20/16 16:15 07/24/16 09:26 (Flomax) 0.4 mg DAILY PO 07/22/16 09:00 07/24/16 09:27 (Valium) 1 mg Q8H PO 07/21/16 14:00 07/24/16 14:04 (Pill Splitter) 1 ea UNSCH PRN OTHER 07/21/16 10:15 (Cardizem) 60 mg QID PO 07/22/16 13:00 07/24/16 14:07 (Mysoline) 25 mg HS PO 07/24/16 21:00 Vital Signs / I&O Vital Signs Date Time Temp Pulse Resp B/P Pulse Ox O2 Delivery O2 Flow Rate FiO2 07/24/16 15:00 98.0 95 20 135/80 98 07/24/16 14:00 90 07/24/16 13:00 73 07/24/16 12:00 101 07/24/16 11:00 98.2 83 20 133/74 97 07/24/16 11:00 85 07/24/16 10:00 118 07/24/16 09:00 104 07/24/16 08:00 110 07/24/16 07:00 77 07/24/16 07:00 98.6 65 16 144/70 96 07/24/16 07:00 96 Room Air 07/24/16 06:00 84 07/24/16 05:00 85 07/24/16 04:04 90 07/24/16 04:00 Room Air 07/24/16 04:00 98.3 90 20 105/56 97 07/24/16 03:00 87 07/24/16 02:00 81 07/24/16 01:00 84 07/24/16 00:00 98.2 76 20 137/44 96 07/24/16 00:00 76 07/24/16 00:00 Room Air 07/23/16 23:00 70 07/23/16 22:00 72 07/23/16 21:00 75 07/23/16 20:00 Room Air 07/23/16 20:00 67 07/23/16 20:00 98.0 67 22 103/54 97 07/23/16 18:00 82 07/23/16 17:00 77 I/O 07/23/16 07/23/16 07/23/16 07/24/16 07/24/16 07/24/16 07:00 15:00 23:00 07:00 15:00 23:00 Intake Total 720 ml 242 ml Balance 720 ml 242 ml Intake Oral 720 ml 240 ml IV Total 2 ml # Voids 3 3 # Bowel Movements 1 1 Physical Exam GENERAL: NAD SKIN: Warm and dry. HEAD: Atraumatic. Normocephalic. EYES: Pupils equal and round. No scleral icterus. No injection or drainage. ENT: No nasal bleeding or discharge. Mucous membranes pink and moist. NECK: Trachea midline. No JVD. CARDIOVASCULAR: Irregularly irregular RESPIRATORY: No accessory muscle use. Decreased breath sounds bilaterally. GASTROINTESTINAL: Abdomen soft, non-tender, nondistended. Hepatic and splenic margins not palpable. MUSCULOSKELETAL: Extremities without clubbing, cyanosis, or edema. No obvious deformities. NEUROLOGICAL: Awake and alert. No obvious cranial nerve deficits. Motor grossly within normal limits. Five out of 5 muscle strength in the arms and legs. Normal speech. PSYCHIATRIC: Appropriate mood and affect; insight and judgment normal. Laboratory Laboratory Tests Test 07/22/16 03:20 White Blood Count 4.9 TH/MM3 (4.0-11.0) Red Blood Count 3.34 MIL/MM3 (4.50-5.90) Hemoglobin 10.1 GM/DL (13.0-17.0) Hematocrit 31.2 % (39.0-51.0) Mean Corpuscular Volume 93.5 FL (80.0-100.0) Mean Corpuscular Hemoglobin 30.2 PG (27.0-34.0) Mean Corpuscular Hemoglobin 32.3 % Concent (32.0-36.0) Red Cell Distribution Width 22.7 % (11.6-17.2) Platelet Count 190 TH/MM3 (150-450) Mean Platelet Volume 9.5 FL (7.0-11.0) Sodium Level 137 MEQ/L (136-145) Potassium Level 3.8 MEQ/L (3.5-5.1) Chloride Level 104 MEQ/L (98-107) Carbon Dioxide Level 25.1 MEQ/L (21.0-32.0) Anion Gap 8 MEQ/L (5-15) Blood Urea Nitrogen 13 MG/DL (7-18) Creatinine 1.15 MG/DL (0.60-1.30) Estimat Glomerular Filtration 61 ML/MIN (>89) Rate Random Glucose 103 MG/DL (74-106) Calcium Level 7.9 MG/DL (8.5-10.1) Assessment and Plan Problem List: (1) Diarrhea (2) Atrial fibrillation, new onset (3) Alcohol dependence, continuous drinking behavior (4) Acute renal insufficiency (5) Urinary tract infection (6) Gait instability Assessment and Plan 1) Heart rate controlled, continue Cardizem 60mg q 6hrs 2) Not an anticoagulation candidate due to falls, and ETOH history, will place on ASA 3) EF 55-60% 4) Afib most likely due to dehydration from diarrhea 5) Agree with SNF when available 6) Will see PRN Problem Qualifiers (1) Urinary tract infection: Qualified Code: N30.01 - Acute cystitis with hematuria Jorge Luis Stafford DO Jul 24, 2016 16:35
[2016-07-24] MEDS ORDERED: PRIMIDONE 50 MG TAB PO SCH (21:00)
[2016-07-25] VITALS (13 sets, daily range): BP systolic 123; BP diastolic 68–73; PULSE 57–132; RESP 18; TEMP 98.4; O2SAT 97–98
[2016-07-25] MEDS: HEPARIN SODIUM - SQ 10,000 UNITS/ML VIAL SQ SCH (02:56)
[2016-07-25] MEDS: CHLORHEXIDINE GLUCONATE 2 % 1 PACK (2 CLOTHS) TOP SCH (02:57)
[2016-07-25] MEDS: DIAZEPAM 2 MG TAB PO SCH (05:05)
[2016-07-25] MEDS: NYSTATIN 100,000 U/GM PWD 15 GM BTL TOPICAL SCH (09:00)
--- NOTE | 2016-07-25 10:04 | HHI.PR ---
Subjective Remarks Patient discharged to SNF yesterday but he initially refused. He later agreed but it was too late. Will go today. He has no new complaints. States he is feeling well. Objective Vitals Vital Signs Date Time Temp Pulse Resp B/P Pulse Ox O2 Delivery O2 Flow Rate FiO2 07/25/16 09:50 98.4 113 18 123/73 98 07/25/16 09:50 98 Room Air 07/25/16 06:00 72 07/25/16 05:00 65 07/25/16 04:00 66 07/25/16 03:00 98.4 68 18 123/68 97 07/25/16 03:00 68 07/25/16 02:00 67 07/25/16 01:00 57 07/25/16 00:00 60 07/24/16 23:00 98.4 66 18 122/67 97 07/24/16 23:00 62 07/24/16 22:00 66 07/24/16 21:00 69 07/24/16 20:00 98.2 67 18 101/47 98 07/24/16 20:00 69 07/24/16 19:00 98 Room Air 07/24/16 19:00 71 07/24/16 18:00 102 07/24/16 17:00 103 07/24/16 16:00 72 07/24/16 15:00 98.0 95 20 135/80 98 07/24/16 15:00 97 07/24/16 14:00 90 07/24/16 13:00 73 07/24/16 12:00 101 07/24/16 11:00 98.2 83 20 133/74 97 07/24/16 11:00 85 I/O 07/24/16 07/24/16 07/24/16 07/25/16 07/25/16 07/25/16 07:00 15:00 23:00 07:00 15:00 23:00 Intake Total 242 ml 720 ml 360 ml Output Total 650 ml Balance 242 ml 70 ml 360 ml Intake Oral 240 ml 720 ml 360 ml IV Total 2 ml Output Urine Total 650 ml # Voids 3 3 # Bowel Movements 1 1 2 Result Diagram: 07/22/16 0320 07/22/16 032 Objective Remarks CONSTITUTIONAL/GENERAL: Obese male in no acute distress. CARDIOVASCULAR: Normal rate. Irregular rhythm. No appreciable murmurs. Peripheral pulses 2+ and symmetric. RESPIRATORY/CHEST: Symmetric, unlabored respirations. Breath sounds equal and clear to auscultation bilaterally. No wheezes, crackles, rales, or rhonchi. GASTROINTESTINAL: Abdomen soft, obese, non-tender. Bowel sounds present. MUSCULOSKELETAL: Extremities without clubbing, cyanosis, or edema. Left shoulder joint with limited ROM for abduction due to pain. Left shoulder tender to palpation. NEUROLOGICAL: Awake and alert. Move all extremities spontaneously. No focal deficits. PSYCHIATRIC: No obvious mood problems. No apparent hallucinations or other psychotic thought process. 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 fib with RVR and a persistent bilateral upper extremity tremors, alcohol abuse. Paroxysmal A. fib with RVR: No known history of A. fib. - Cardiology following. Rate controlled with Cardizem 60 mg every 6 hours. Patient is on aspirin. 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 May need outpatient follow-up for further workup to rule out Parkinson's disease. - Sinemet has been discontinued. Patient was started on Primidone. reports that it is improving. Alcohol abuse/withdrawal: May be contributing to the tremor above. Patient drinks a couple bottles of wine daily. - Currently getting Valium 1 mg every 8 hours. Will change to PRN Hypotension on admission, with history of chronic hypertension: - Lisinopril on hold. May need to resume once blood pressure start coming up. Acute renal failure: Resolved. Appreciate nephrology assistance. Thought to be due to volume depletion. Patient is taking enough orally. IV fluid UTI, patient was on Cipro outpatient. Urine culture here is negative. He received 3 days of Rocephin. Antibiotics discontinued. IV fluid discontinued. BPH: Resume Flomax. Left shoulder pain after fall: Patient having problem with abduction. X-ray does not show any fractures. He does have osteoarthritis and previous rotator cuff repair. Continue with pain control. Lung nodule: Discovered on chest x-ray. Confirmed by CT. Will need outpatient follow up. Patient was counseled. GI prophylaxis: Stool softener PRN constipation. DVT PPx: Heparin Discharge Planning DC to rehab today. Pratik Caal MD Jul 25, 2016 10:03
[2016-07-25] MEDS: PANTOPRAZOLE SODIUM 40 MG VIAL IV SCH (10:15)
[2016-07-25] MEDS: TAMSULOSIN HCL 0.4 MG CAP PO SCH (10:16)
[2016-07-25] MEDS: DILTIAZEM HCL 60 MG TAB PO SCH ×2 (10:16→12:42)
[2016-07-25] MEDS: FOLIC ACID 1 MG TAB PO SCH (10:16)
[2016-07-25] MEDS: ASPIRIN 325 MG TAB PO SCH (10:16)
[2016-07-25] MEDS: THIAMINE HCL 100 MG TAB PO SCH (10:16)
[2016-07-25] MEDS: MULTIVITAMIN TAB PO SCH (10:16)
[2016-07-25] MEDS ORDERED: DIAZEPAM 2 MG TAB PO PRN (14:00)
== END 2016-07-25 12:49 | DRG 309 ==
LOC: NEPC 11:39 → NEDA 13:38 → HIMW 17:30 → HCIS 07-22 18:21
PROVIDERS: ADMIT Family Medicine; ATTEND Family Medicine
PROC: 05HN33Z Insertion of Infusion Device into Left Internal Jugular Vein, Percutaneous Approach (ICD-10-PCS; principal; 2016-07-18)
PROC: B544ZZA Ultrasonography of Left Jugular Veins, Guidance (ICD-10-PCS; 2016-07-18)
DX: I48.0 Paroxysmal atrial fibrillation (principal); N17.9 Acute kidney failure, unspecified; E87.2 Acidosis; I95.9 Hypotension, unspecified; D64.9 Anemia, unspecified; E86.0 Dehydration; E88.09 Other disorders of plasma-protein metabolism, not elsewhere classified; E87.1 Hypo-osmolality and hyponatremia; N30.01 Acute cystitis with hematuria; I10 Essential (primary) hypertension; F10.20 Alcohol dependence, uncomplicated; R25.1 Tremor, unspecified; R27.8 Other lack of coordination; R26.9 Unspecified abnormalities of gait and mobility; R91.1 Solitary pulmonary nodule; I48.92 Unspecified atrial flutter; K21.9 Gastro-esophageal reflux disease without esophagitis; K80.20 Calculus of gallbladder without cholecystitis without obstruction; M19.90 Unspecified osteoarthritis, unspecified site; N40.0 Benign prostatic hyperplasia without lower urinary tract symptoms; R29.6 Repeated falls; Z79.82 Long term (current) use of aspirin
CPT/HCPCS: 36556; 71010; 71250; 73030; 74176; 76775; 76937; 80048; 80053; 80069; 80074; 80320; 81001; 82784; 83605; 83690; 83880; 83883; 83930; 83935; 84165; 84443; 85025; 85027; 85610; 85730; 86334; 86850; 86900; 86901; 87040; 87086; 87641; 93005; 93306; 96374; C9113; J0282; J0696; J1644; J7030; J7042; J7120

== ENCOUNTER 2017-07-18 05:38 | Emergency (ER) | payer MEDICARE, OTHER ==
[~2017-07-18] VITALS: Ht 170.2 cm; Wt 110.0 kg
[~2017-07-18 05:38] MED LIST changes: +ASPI-183 PO; -CARV3.12 PO; -CETACRE3 TOPICAL; -CIPR-9 PO; +DILT60TA33 PO; +FOLI1TAB4 PO; -FURO20TA PO; -LISI-360 PO; +LORA-475 PO; -METO2.5T7 PO; -OMEP20TA PO; +OMEP20TA93 PO; -POTA10IN2 PO; +PRIM50 PO; -ST J81CH PO; +TAMS0.4C4 PO; -TAMS0.4C67 PO; +THERTAB15 PO; +VITA100T2 PO; -[UNRECOGNIZED DRUG - REMARK]; -[UNRECOGNIZED DRUG - SUPPLY]
[2017-07-18 05:45] VITALS: BP 162/75; PULSE 81; RESP 16; TEMP 97; O2SAT 97
[2017-07-18] MEDS ORDERED: SODIUM CHLORIDE 0.9% FLUSH 10 ML FLUSH IVF PRN (06:00)
[2017-07-18 06:24] LABS: BASOPHIL % 0.8 % (0.0-2.0); EOSINOPHIL # 0.6 TH/MM3 (0-0.4); HEMATOCRIT 48.1 % (39.0-51.0); HEMOGLOBIN 15.4 GM/DL (13.0-17.0); LYMPH % 28.7 % (9.0-44.0); LYMPHOCYTE # 1.8 TH/MM3 (1.0-4.8); MEAN CELL VOLUME 95.7 FL (80.0-100.0); MEAN CORPUSCULAR HEMOGLOBIN 30.7 PG (27.0-34.0); MEAN CORPUSCULAR HGB CONC 32.1 % (32.0-36.0); MEAN PLATELET VOLUME 9.7 FL (7.0-11.0); MONOCYTE # 0.7 TH/MM3 (0-0.9); NEUT % 48.5 % (16.0-70.0); PLATELET COUNT 227 TH/MM3 (150-450); RED BLOOD COUNT 5.03 MIL/MM3 (4.50-5.90); RED CELL DISTRIBUTION WIDTH 16.6 % (11.6-17.2); WHITE BLOOD COUNT 6.1 TH/MM3 (4.0-11.0)
--- NOTE | 2017-07-18 06:27 | RADRPT ---
EXAM DATE/TIME: 07/18/2017 05:57 [facility] COMPARISON: CHEST SINGLE AP, July 18, 2016, 23:24. INDICATIONS : Shortness of breath. MEDICAL HISTORY : Congestive heart failure. Hypertension Gastroesophageal reflux disease. SURGICAL HISTORY : Rotator cuff repair ENCOUNTER: Initial ACUITY: 1 day PAIN SCORE: 0/10 LOCATION: Bilateral chest FINDINGS: A single portable frontal view the chest shows mild cardiomegaly which is stable. No pulmonary vascul ar engorgement. Lungs are clear. No effusions. Degenerative thoracic spine. Anchoring devices overlie the left humeral head. CONCLUSION: Cardiomegaly. Clear lungs. Gerson Zhang Jr., MD on July 18, 2017 at 6:25 Board Certified Radiologist. This report was verified electronically.
[2017-07-18 06:37] LABS: ALBUMIN 3.4 GM/DL (3.4-5.0); ALT (GPT) 35 U/L (12-78); AST (GOT) 23 U/L (15-37); BICARBONATE 25.6 MEQ/L (21.0-32.0); BLOOD UREA NITROGEN 9 MG/DL (7-18); CALCIUM 8.7 MG/DL (8.5-10.1); CHLORIDE 103 MEQ/L (98-107); CREATININE 0.92 MG/DL (0.60-1.30); GLOMERULAR FILTRATION RATE 78 ML/MIN (>89); GLUCOSE,RANDOM 119 MG/DL (74-106); INTERNATIONAL NORMALIZED RATIO 1.1 RATIO; PROTHROMBIN TIME - PATIENT 10.7 SEC (9.8-11.6); SODIUM (NA) 137 MEQ/L (136-145)
[2017-07-18 06:40] LABS: ALKALINE PHOSPHATASE 104 U/L (45-117); TOTAL BILIRUBIN ADULT 0.3 MG/DL (0.2-1.0); TOTAL PROTEIN 7.6 GM/DL (6.4-8.2)
--- NOTE | 2017-07-18 06:40 | PD ---
HPI . Psychiatric symptoms Chief Complaint: Psychiatric Symptoms Time Seen by Provider: 05:48 Travel History International Travel<30 days: No Contact w/Intl Traveler<30days: No Traveled to known affect area: No History of Present Illness HPI 86-year-old male chronic alcoholic who presents to ED via EMS secondary to multiple (8) responses to the home prompted by [employer] fall device. Patient is a chronic alcoholic who is admitting to drinking some amount of wine at this evening. As per EMS, patient is acting intoxicated and smelling of alcohol. Patient is denying any focal trauma. Unreliable historian PFSH Past Medical History Narrative Medical Past medical history reviewed Arthritis: No Asthma: No Autoimmune Disease: No Heart Rhythm Problems: No Cancer: No Cardiovascular Problems: Yes (CHF) Chemotherapy: No Chest Pain: No Congestive Heart Failure: Yes COPD: No Cerebrovascular Accident: No Diabetes: No Diminished Hearing: No Endocrine: No GERD: Yes Genitourinary: No Hiatal Hernia: No Hypertension: Yes Immune Disorder: No Kidney Stones: No Musculoskeletal: No Neurologic: No Psychiatric: No Reproductive: No Respiratory: No Migraines: No Radiation Therapy: No Renal Failure: No Seizures: No Sickle Cell Disease: No Sleep Apnea: No Thyroid Disease: No Ulcer: No Tetanus Vaccination: Unknown Influenza Vaccination: No Past Surgical History Abdominal Surgery: No AICD: No Arteriovenous Shunt: No Cardiac Surgery: No Ear Surgery: No Endocrine Surgery: No Eye Surgery: No Genitourinary Surgery: No Gynecologic Surgery: No Insulin Pump: No Joint Replacement: No Oral Surgery: No Pacemaker: No Thoracic Surgery: No Social History Alcohol Use: Yes (DAILY) Tobacco Use: No Substance Use: No Allergies-Medications (Allergen,Severity, Reaction): Coded Allergies: No Known Allergies (Unverified , 07/18/16) Reported Meds & Prescriptions Reported Meds & Active Scripts Active Ativan (Lorazepam) 2 Mg Tab 2 Mg PO Q6H PRN Folate (Folic Acid) 1 Mg Tab 1 Mg PO DAILY Cardizem (Diltiazem HCl) 60 Mg Tab 60 Mg PO QID 30 Days Reported Tamsulosin (Tamsulosin HCl) 0.4 Mg Cap 0.4 Mg PO DAILY Omeprazole 20 Mg Tab 20 Mg PO DAILY Aspirin 325 Mg Tab 325 Mg PO DAILY Narrative Medication Allergies and medications reviewed Review of Systems ROS Limitations: Poor Historian (unreliable historian, intoxicated and confabulating) Except as stated in HPI: all other systems reviewed are Neg General / Constitutional: No: Fever Eyes: No: Visual changes HENT: No: Headaches Cardiovascular: No: Chest Pain or Discomfort Respiratory: No: Shortness of Breath Gastrointestinal: No: Abdominal Pain Genitourinary: No: Dysuria Musculoskeletal: No: Pain Skin: No Rash Neurologic: No: Weakness Psychiatric: No: Depression Endocrine: No: Polydipsia Hematologic/Lymphatic: No: Easy Bruising Physical Exam Narrative GENERAL: Awake and alert, pleasant, cooperative, unreliable historian SKIN: Warm and dry. Color is normal no diaphoresis cyanosis or pallor HEAD: Atraumatic. Normocephalic. EYES: Pupils equal and round. No scleral icterus. No injection or drainage. ENT: No nasal bleeding or discharge. Mucous membranes pink and moist. NECK: Trachea midline. No JVD. Supple full range of motion nontender CARDIOVASCULAR: Regular rate and rhythm. S1-S2 no murmurs or gallops RESPIRATORY: No accessory muscle use. Clear to auscultation. Breath sounds equal bilaterally. GASTROINTESTINAL: Abdomen soft, non-tender, nondistended. Hepatic and splenic margins not palpable. MUSCULOSKELETAL: Extremities without clubbing, cyanosis, or edema. No obvious deformities. NEUROLOGICAL: Awake and alert. No obvious deficits. Moving all 4 extremities, cooperative following commands easily. Appears intoxicated PSYCHIATRIC: Jovial and cooperative, however confabulating. Difficult exam Data Data Last Documented VS Vital Signs Date Time Temp Pulse Resp B/P (MAP) Pulse Ox O2 Delivery O2 Flow Rate FiO2 07/18/17 05:45 97.0 81 16 162/75 (104) 97 Orders Orders Electrocardiogram (07/18/17 05:48) Complete Blood Count With Diff (07/18/17 05:48) Comprehensive Metabolic Panel (07/18/17 05:48) Prothrombin Time / Inr (Pt) (07/18/17 05:48) Act Partial Throm Time (Ptt) (07/18/17 05:48) Urinalysis - C+S If Indicated (07/18/17 05:48) Chest, Single Ap (07/18/17 05:48) Iv Access Insert/Monitor (07/18/17 05:48) Ecg Monitoring (07/18/17 05:48) Oximetry (07/18/17 05:48) Sodium Chloride 0.9% Flush (Ns Flush) (07/18/17 06:00) Drug Screen, Random Urine (07/18/17 05:48) Alcohol (Ethanol) (07/18/17 05:48) Ct Brain W/O Iv Contrast(Rout) (07/18/17 ) Labs Laboratory Tests Test 07/18/17 06:05 White Blood Count 6.1 TH/MM3 Red Blood Count 5.03 MIL/MM3 Hemoglobin 15.4 GM/DL Hematocrit 48.1 % Mean Corpuscular Volume 95.7 FL Mean Corpuscular Hemoglobin 30.7 PG Mean Corpuscular Hemoglobin Concent 32.1 % Red Cell Distribution Width 16.6 % Platelet Count 227 TH/MM3 Mean Platelet Volume 9.7 FL Neutrophils (%) (Auto) 48.5 % Lymphocytes (%) (Auto) 28.7 % Monocytes (%) (Auto) 12.0 % Eosinophils (%) (Auto) 10.0 % Basophils (%) (Auto) 0.8 % Neutrophils # (Auto) 3.0 TH/MM3 Lymphocytes # (Auto) 1.8 TH/MM3 Monocytes # (Auto) 0.7 TH/MM3 Eosinophils # (Auto) 0.6 TH/MM3 Basophils # (Auto) 0.0 TH/MM3 CBC Comment DIFF FINAL Differential Comment Prothrombin Time 10.7 SEC Prothromb Time International Ratio 1.1 RATIO Activated Partial Thromboplast Time 29.0 SEC Blood Urea Nitrogen 9 MG/DL Creatinine 0.92 MG/DL Random Glucose 119 MG/DL Total Protein 7.6 GM/DL Albumin 3.4 GM/DL Calcium Level 8.7 MG/DL Alkaline Phosphatase 104 U/L Aspartate Amino Transf (AST/SGOT) 23 U/L Alanine Aminotransferase (ALT/SGPT) 35 U/L Total Bilirubin 0.3 MG/DL Sodium Level 137 MEQ/L Potassium Level 4.4 MEQ/L Chloride Level 103 MEQ/L Carbon Dioxide Level 25.6 MEQ/L Anion Gap 8 MEQ/L Estimat Glomerular Filtration Rate 78 ML/MIN Ethyl Alcohol Level 181 MG/DL [facility] Medical Decision Making Medical Screen Exam Complete: Yes Emergency Medical Condition: Yes Medical Record Reviewed: Yes Differential Diagnosis Intoxication, frequent falls, inability to care for self. Narrative Course Patient brought to the hospital for evaluation on a Austin act, secondary to patient not build to care for himself adequately with concomitant copious alcohol use and frequent falls necessitating multiple EMS presentations per day. Laboratory examinations reviewed, no significant abnormalities with the exception of patient's alcohol level was is moderately elevated at 181. Awaiting CT head for medical clearance. Patient signed out to oncoming ED physician pending CT head and psychiatric screening after medical clearance. Mario Jeong MD Jul 18, 2017 06:40
--- NOTE | 2017-07-18 06:49 | RADRPT ---
EXAM DATE/TIME: 07/18/2017 06:40 [facility] COMPARISON: No previous studies available for comparison. INDICATIONS : Altered mental status. RADIATION DOSE: 18.34 CTDIvol (mGy) MEDICAL HISTORY : Cardiovascular disease. Gastroesophageal reflux disease. SURGICAL HISTORY : None. ENCOUNTER: Initial ACUITY: 1 day PAIN SCALE: 0/10 LOCATION: cranial TECHNIQUE: Multiple contiguous axial images were obtained of the head. Using automated exposure control and adj ustment of the mA and/or kV according to patient size, radiation dose was kept as low as reasonably a chievable to obtain optimal diagnostic quality images. DICOM format image data is available electro nically for review and comparison. FINDINGS: CEREBRUM: Atrophy. The ventricles are normal for age. No evidence of midline shift, mass lesion, hemorrhage or acute infarction. No extra-axial fluid collections are seen. POSTERIOR FOSSA: The cerebellum and brainstem are intact. The 4th ventricle is midline. The cerebellopontine angle i s unremarkable. EXTRACRANIAL: The visualized portion of the orbits is intact. SKULL: The calvaria is intact. No evidence of skull fracture. CONCLUSION: 1. No acute intracranial abnormality. 2. Atrophy. Gerson Zhang Jr., MD on July 18, 2017 at 6:46 Board Certified Radiologist. This report was verified electronically.
[2017-07-18] MEDS ORDERED: diphenhydrAMINE HCL 25 MG CAP PO ONE (07:15)
--- NOTE | 2017-07-18 07:46 | PD ---
Data Data Last Documented VS Vital Signs Date Time Temp Pulse Resp B/P (MAP) Pulse Ox O2 Delivery O2 Flow Rate FiO2 07/18/17 09:56 80 17 95 Room Air 07/18/17 05:45 97.0 162/75 (104) Orders Orders Electrocardiogram (07/18/17 05:48) Complete Blood Count With Diff (07/18/17 05:48) Comprehensive Metabolic Panel (07/18/17 05:48) Prothrombin Time / Inr (Pt) (07/18/17 05:48) Act Partial Throm Time (Ptt) (07/18/17 05:48) Chest, Single Ap (07/18/17 05:48) Iv Access Insert/Monitor (07/18/17 05:48) Ecg Monitoring (07/18/17 05:48) Oximetry (07/18/17 05:48) Sodium Chloride 0.9% Flush (Ns Flush) (07/18/17 06:00) Drug Screen, Random Urine (07/18/17 05:48) Alcohol (Ethanol) (07/18/17 05:48) Ct Brain W/O Iv Contrast(Rout) (07/18/17 ) Diet Regular Basic (07/18/17 Breakfast) Diphenhydramine (Benadryl) (07/18/17 07:15) Psych Screen (07/18/17 07:05) Labs Laboratory Tests Test 07/18/17 06:05 White Blood Count 6.1 TH/MM3 Red Blood Count 5.03 MIL/MM3 Hemoglobin 15.4 GM/DL Hematocrit 48.1 % Mean Corpuscular Volume 95.7 FL Mean Corpuscular Hemoglobin 30.7 PG Mean Corpuscular Hemoglobin Concent 32.1 % Red Cell Distribution Width 16.6 % Platelet Count 227 TH/MM3 Mean Platelet Volume 9.7 FL Neutrophils (%) (Auto) 48.5 % Lymphocytes (%) (Auto) 28.7 % Monocytes (%) (Auto) 12.0 % Eosinophils (%) (Auto) 10.0 % Basophils (%) (Auto) 0.8 % Neutrophils # (Auto) 3.0 TH/MM3 Lymphocytes # (Auto) 1.8 TH/MM3 Monocytes # (Auto) 0.7 TH/MM3 Eosinophils # (Auto) 0.6 TH/MM3 Basophils # (Auto) 0.0 TH/MM3 CBC Comment DIFF FINAL Differential Comment Prothrombin Time 10.7 SEC Prothromb Time International Ratio 1.1 RATIO Activated Partial Thromboplast Time 29.0 SEC Blood Urea Nitrogen 9 MG/DL Creatinine 0.92 MG/DL Random Glucose 119 MG/DL Total Protein 7.6 GM/DL Albumin 3.4 GM/DL Calcium Level 8.7 MG/DL Alkaline Phosphatase 104 U/L Aspartate Amino Transf (AST/SGOT) 23 U/L Alanine Aminotransferase (ALT/SGPT) 35 U/L Total Bilirubin 0.3 MG/DL Sodium Level 137 MEQ/L Potassium Level 4.4 MEQ/L Chloride Level 103 MEQ/L Carbon Dioxide Level 25.6 MEQ/L Anion Gap 8 MEQ/L Estimat Glomerular Filtration Rate 78 ML/MIN Ethyl Alcohol Level 181 MG/DL MDM Supervised Visit with [facility]: No Narrative Course 86-year-old man, under a Austin act for alcohol intoxication and frequent falls, reportedly multiple reaction EMS last night for pushing his life alert button. Patient seen by on consult, signed out to me to follow-up results of testing , psych screening. Studies show: CBC is unremarkable. CMP is unremarkable. Coags unremarkable. Alcohol [address] negative. Chest x-ray negative Diagnosis Primary Impression: Alcohol abuse Additional Impression: Alcohol dependence, continuous drinking behavior Patient Instructions: General Instructions Additional Instruction: Avoid alcohol. Follow-up with your primary physician, and with home health as discussed. Return to the emergency department for any new or worsening symptoms. Med/Other Pt SpecificInfo: No Change to Meds Disposition: 01 DISCHARGE HOME Condition: Stable Zain Freitas MD Jul 18, 2017 07:45
--- NOTE | 2017-07-18 09:31 | EKG ---
Date Performed: 07/18/2017 Time Performed: 05:58:09 PTAGE: 86 years EKG: ATRIAL FIBRILLATION RIGHT BUNDLE BRANCH BLOCK SEPTAL MYOCARDIAL INFARCTION ABNORMAL ECG NO PREVIOUS TRACING DOCTOR: Zain Medrano Interpretating Date/Time 07/18/2017 09:30:59
[2017-07-18 09:56] VITALS: PULSE 80; RESP 17; O2SAT 95
--- NOTE | 2017-07-18 10:49 | PD ---
History of Present Illness Chief Complaint: Psychiatric Symptoms Time Seen by Provider: 09:00 Travel History International Travel<30 Days: No Contact w/Intl Traveler<30days: No Known affected area: No Legal Status Legal Status: [place] Act Austin Act Signed By: Ritchie Austin Act Comment: Signed by [facility] KevinMoshe #[id number]. History of Present Illness: 86-year-old male under a Austin act, interviewed at bedside with nurse Angi. Patient is no longer clinically intoxicated. He denies any suicidal or homicidal ideation, plan or intent. He has no significant cognitive deficits and no psychotic symptoms. He is verbally yosvany for safety and he is competent to do so. He states that he likes living alone and he likes to drink alcohol. He remembers falling out of his chair last evening. He does not want to stop drinking alcohol and he does not want to have treatment. Patient is felt to be competent to make informed decisions. PFSH Past Medical History Arthritis: No Asthma: No Autoimmune Disease: No Heart Rhythm Problems: No Cancer: No Cardiovascular Problems: Yes (CHF) Chemotherapy: No Chest Pain: No Congestive Heart Failure: Yes COPD: No Cerebrovascular Accident: No Diabetes: No Diminished Hearing: No Endocrine: No GERD: Yes Genitourinary: No Hiatal Hernia: No Hypertension: Yes Immune Disorder: No Kidney Stones: No Musculoskeletal: No Neurologic: No Psychiatric: No Reproductive: No Respiratory: No Migraines: No Radiation Therapy: No Renal Failure: No Seizures: No Sickle Cell Disease: No Sleep Apnea: No Thyroid Disease: No Ulcer: No Tetanus Vaccination: Unknown Influenza Vaccination: No Past Surgical History Abdominal Surgery: No AICD: No Arteriovenous Shunt: No Cardiac Surgery: No Ear Surgery: No Endocrine Surgery: No Eye Surgery: No Genitourinary Surgery: No Gynecologic Surgery: No Insulin Pump: No Joint Replacement: No Oral Surgery: No Pacemaker: No Thoracic Surgery: No Psychiatric History Psychiatric History Hx Psychiatric Treatment: Patient denies any psychiatric tx hx. History of Inpatient Treatment: No Guns or firearms in home: No Social History Hx Alcohol Use: Yes (DAILY) Hx Tobacco Use: No Hx Substance Use: Yes (Wine only per pt; Stated that he began at age 81.) Substance Use Type: Alcohol Hx of Substance Use Treatment: No Allergies-Medications (Allergen,Severity, Reaction): Coded Allergies: No Known Allergies (Unverified , 07/18/16) Reported Meds & Prescriptions Reported Meds & Active Scripts Active Ativan (Lorazepam) 2 Mg Tab 2 Mg PO Q6H PRN Folate (Folic Acid) 1 Mg Tab 1 Mg PO DAILY Cardizem (Diltiazem HCl) 60 Mg Tab 60 Mg PO QID 30 Days Reported Tamsulosin (Tamsulosin HCl) 0.4 Mg Cap 0.4 Mg PO DAILY Omeprazole 20 Mg Tab 20 Mg PO DAILY Aspirin 325 Mg Tab 325 Mg PO DAILY Review of Systems Except as stated in HPI: all other systems reviewed are Neg Mental Status Examination Appearance: Appropriate Consciousness: Alert Orientation: x4 Motor Activity: Normal gait Speech: Unremarkable Language: Adequate Fund of Knowledge: Adequate Attention and Concentration: Adequate Memory: Unremarkable Mood: Appropriate Affect: Appropriate Thought Process & Associations: Intact Thought Content: Appropriate Hallucination Type: None Delusion Type: None Suicidal Ideation: No Suicidal Plan: No Suicidal Intention: No Homicidal Ideation: No Homicidal Plan: No Homicidal Intention: No Insight: Adequate Judgment: Adequate MDM Medical Decision Making Medical Record Reviewed: Yes Assessment/Plan Patient interviewed at bedside. Electronic medical record reviewed. Case discussed with nurse Angi. Angi also spoke to family member and concurred with lifting Austin act and releasing patient to go home. Patient does not meet criteria for Austin act or involuntary psychiatric hospitalization. Toxicology screen demonstrates alcohol level of 181. Orders Orders Electrocardiogram (07/18/17 05:48) Complete Blood Count With Diff (07/18/17 05:48) Comprehensive Metabolic Panel (07/18/17 05:48) Prothrombin Time / Inr (Pt) (07/18/17 05:48) Act Partial Throm Time (Ptt) (07/18/17 05:48) Chest, Single Ap (07/18/17 05:48) Iv Access Insert/Monitor (07/18/17 05:48) Ecg Monitoring (07/18/17 05:48) Oximetry (07/18/17 05:48) Sodium Chloride 0.9% Flush (Ns Flush) (07/18/17 06:00) Drug Screen, Random Urine (07/18/17 05:48) Alcohol (Ethanol) (07/18/17 05:48) Ct Brain W/O Iv Contrast(Rout) (07/18/17 ) Diet Regular Basic (07/18/17 Breakfast) Diphenhydramine (Benadryl) (07/18/17 07:15) Psych Screen (07/18/17 07:05) Results Vital Signs Date Time Temp Pulse Resp B/P (MAP) Pulse Ox O2 Delivery O2 Flow Rate FiO2 07/18/17 09:56 80 17 95 Room Air 07/18/17 05:45 97.0 81 16 162/75 (104) 97 Laboratory Tests Test 07/18/17 06:05 White Blood Count 6.1 Red Blood Count 5.03 Hemoglobin 15.4 Hematocrit 48.1 Mean Corpuscular Volume 95.7 Mean Corpuscular Hemoglobin 30.7 Mean Corpuscular Hemoglobin Concent 32.1 Red Cell Distribution Width 16.6 Platelet Count 227 Mean Platelet Volume 9.7 Neutrophils (%) (Auto) 48.5 Lymphocytes (%) (Auto) 28.7 Monocytes (%) (Auto) 12.0 Eosinophils (%) (Auto) 10.0 Basophils (%) (Auto) 0.8 Neutrophils # (Auto) 3.0 Lymphocytes # (Auto) 1.8 Monocytes # (Auto) 0.7 Eosinophils # (Auto) 0.6 Basophils # (Auto) 0.0 CBC Comment DIFF FINAL Differential Comment Prothrombin Time 10.7 Prothromb Time International Ratio 1.1 Activated Partial Thromboplast Time 29.0 Blood Urea Nitrogen 9 Creatinine 0.92 Random Glucose 119 Total Protein 7.6 Albumin 3.4 Calcium Level 8.7 Alkaline Phosphatase 104 Aspartate Amino Transf (AST/SGOT) 23 Alanine Aminotransferase (ALT/SGPT) 35 Total Bilirubin 0.3 Sodium Level 137 Potassium Level 4.4 Chloride Level 103 Carbon Dioxide Level 25.6 Anion Gap 8 Estimat Glomerular Filtration Rate 78 Ethyl Alcohol Level 181 Diagnosis Primary Impression: Alcohol abuse Triston Bueno MD Jul 18, 2017 10:49
== END 2017-07-18 13:14 | disposition home or self-care (01) ==
LOC: NEPC 05:38
DX: F10.20 Alcohol dependence, uncomplicated (principal); I11.0 Hypertensive heart disease with heart failure; I50.9 Heart failure, unspecified; R94.31 Abnormal electrocardiogram [ECG] [EKG]; K21.9 Gastro-esophageal reflux disease without esophagitis
CPT/HCPCS: 70450; 71045; 80053; 80307; 85025; 85610; 85730; 93005; 99285